=== PATIENT | female | born 1975 | race Caucasian/White ===

== ENCOUNTER 2022-10-22 08:21 | Outpatient (CLI) | payer OTHER, SELFPAY ==
[2022-10-22 13:25] LABS: Basophils Absolute Auto 0.1 K/mm3 (0.0-0.1); Basophils Percent Auto 0.9 % (0.2-1.2); Eosinophils Absolute Auto 0.2 K/mm3 (0-0.3); Eosinophils Percent Auto 3.3 % (0-4.4); Hematocrit 41.2 % (37.0-47.0); Hemoglobin 12.9 g/dL (12.0-15.0); Immature Granulocyte Absolute 0.02 K/mm3 (0.00-0.031); Immature Granulocyte Percent A 0.3 % (0-0.5); Lymphocytes Absolute Auto 1.27 K/mm3 (0.9-3.2); Mean Corpuscular HGB Conc 31.3 g/dl (32-36); Mean Corpuscular Hemoglobin 28.4 pg (26-34); Mean Corpuscular Volume 90.7 fl (80-100); Monocytes Absolute Auto 0.6 K/mm3 (0.1-0.6); Monocytes Percent Auto 10.9 % (2.6-8.5); Neutrophils Absolute Auto 3.6 K/mm3 (1.3-6.7); Neutrophils Percent Auto 62.6 % (45.5-73.1); Platelet Count Result 144 k/mm3 (150-375); Red Blood Count 4.54 M/mm3 (4.2-5.4); Red Cell Distribution Width 12.8 % (11.5-14.5); White Blood Count 5.8 K/mm3 (4.5-10.0)
[2022-10-22 14:02] LABS: Erythrocyte Sedimentation Rate 7 mm/hr (0-20)
[2022-10-22 14:04] LABS: Alanine Aminotransferase 47 U/L (6-35); Alkaline Phosphatase 49 U/L (38-126); Anion Gap 6 mmol/L (8-16); Aspartate Amino Transferase 49 U/L (14-36); Bilirubin,Total 0.8 mg/dL (0.2-1.3); Blood Urea Nitrogen 15 mg/dL (7-17); Calcium 8.5 mg/dL (8.4-10.2); Carbon Dioxide 28 mmol/L (22-30); Chloride 104 mmol/L (98-107); Cholesterol 174 mg/dL (0-200); Estimated Glomerular Filt Rate > 60; Glucose 88 mg/dL (65-110); HDL Direct 42 mg/dL; Potassium 4.4 mmol/L (3.4-5.0); Sodium 138 mmol/L (137-145); Triglycerides 109 mg/dL (<150)
[2022-10-22 14:15] LABS: LDL Cholesterol Direct 97 mg/dL
[2022-10-22 14:36] LABS: Free T4 Free Thyroxine 1.25 ng/mL (0.78-2.19)
[2022-10-22 14:39] LABS: Rheumatoid Factor < 12.0 IU/ML (<12)
[2022-10-26 13:01] LABS: ANA Cascade Screen Positive (Negative)
[2022-10-27 12:19] LABS: Chromatin (Nucleosomal) Ab <1.0; Chromatin Antibody Charge YES; DNA (ds) Antibody Charge YES; RNP Antibody 2.6; RNP Antibody Charge YES; Sm Antibody <1.0; Sm Antibody Charge YES; Sm/RNP Antibody <1.0; Sm/RNP Antibody Charge YES
[2022-10-30 19:20] LABS: Immunoglobulin A <5 mg/dL (47-310); TTG IGA AB <1.0 U/mL (<15.0); Tissue Transglutaminase IgG Ab 90.2 U/mL (<15.0)
== END 2022-10-22 08:22 | disposition home or self-care (01) ==
LOC: ANHGOSHLAB 08:24
PROVIDERS: PCP Internal Medicine; Visit Provider Nurse Practitioner
DX: R53.83 Other fatigue (principal); K90.0 Celiac disease; E03.9 Hypothyroidism, unspecified; Z13.220 Encounter for screening for lipoid disorders
CPT/HCPCS: 36415; 80053; 80061; 82784; 84439; 84443; 85025; 85652; 86038; 86364; 86430

== ENCOUNTER 2022-11-03 11:54 | Outpatient (CLI) | payer OTHER, SELFPAY ==
[2022-11-03 12:36] LABS: Basophils Percent Auto 0.4 % (0.2-1.2); Eosinophils Absolute Auto 0.2 K/mm3 (0-0.3); Eosinophils Percent Auto 2.7 % (0-4.4); Hematocrit 38.3 % (37.0-47.0); Hematocrit 38.5 % (37.0-47.0); Hemoglobin 12.7 g/dL (12.0-15.0); Immature Granulocyte Absolute 0.03 K/mm3 (0.00-0.031); Immature Granulocyte Percent A 0.4 % (0-0.5); Lymphocytes Absolute Auto 1.82 K/mm3 (0.9-3.2); Lymphocytes Percent Auto 21.6 % (18.3-44.2); Mean Corpuscular HGB Conc 33.2 g/dl (32-36); Mean Corpuscular Hemoglobin 29.2 pg (26-34); Mean Corpuscular Volume 87.4 fl (80-100); Mean Corpuscular Volume 88.5 fl (80-100); Mean Platelet Volume 11.8 fl (7.4-10.4); Monocytes Absolute Auto 0.9 K/mm3 (0.1-0.6); Monocytes Percent Auto 10.1 % (2.6-8.5); Neutrophils Absolute Auto 5.5 K/mm3 (1.3-6.7); Neutrophils Percent Auto 64.8 % (45.5-73.1); Platelet Count Result 147 k/mm3 (150-375); Red Blood Count 4.35 M/mm3 (4.2-5.4); Red Blood Count 4.38 M/mm3 (4.2-5.4); Red Cell Distribution Width 12.8 % (11.5-14.5); White Blood Count 8.2 K/mm3 (4.5-10.0); White Blood Count 8.4 K/mm3 (4.5-10.0)
[2022-11-03 12:47] LABS: Iron 91 ug/dL (37-170)
[2022-11-03 12:49] LABS: Alanine Aminotransferase 38 U/L (6-35); Albumin Level 4.4 g/dL (3.5-5.1); Alkaline Phosphatase 59 U/L (38-126); Anion Gap 9 mmol/L (8-16); Aspartate Amino Transferase 30 U/L (14-36); Bilirubin,Total 0.6 mg/dL (0.2-1.3); Blood Urea Nitrogen 16 mg/dL (7-17); CRP 0.7 mg/dL (<1.0); Calcium 8.5 mg/dL (8.4-10.2); Carbon Dioxide 23 mmol/L (22-30); Chloride 104 mmol/L (98-107); Estimated Glomerular Filt Rate > 60; Glucose 91 mg/dL (65-110); Potassium 3.7 mmol/L (3.4-5.0); Sodium 136 mmol/L (137-145)
[2022-11-03 12:49] LABS: INR 0.9; Prothrombin Time 12.3 Seconds (11.1-14.7)
[2022-11-03 12:56] LABS: Percent Iron Saturation 22 % (20-50)
[2022-11-03 13:19] LABS: Hepatitis B Surface Antigen Negative (Negative)
[2022-11-03 13:26] LABS: HAV RESULT Negative (Negative); Hepatitis B Core IgM Result Negative (Negative)
[2022-11-03 13:37] LABS: Hepatitis C Virus Antibody Negative (Negative)
[2022-11-03 21:15] LABS: Folic Acid > 20.0 ng/mL (2.76->20)
[2022-11-05 21:49] LABS: Mitochondrial (M2) Ab (IgG) <=20.0 U (<=20.0)
[2022-11-06 11:35] LABS: Vitamin D 1,25 (OH)2 Total 74 pg/mL (18-72); Vitamin D2 1,25 (OH)2 <8 pg/mL; Vitamin D3 1,25 (OH)2 74 pg/mL
[2022-11-06 12:34] LABS: Actin Antibody (IgG) <20 U (<20)
[2022-11-07 08:53] LABS: Ceruloplasmin 35 mg/dL (18-53)
[2022-11-07 16:12] LABS: Alpha Fetoprotein Tumor Marker 2.9 ng/mL (<6.1)
[2022-11-07 19:14] LABS: GGT 18 U/L (3-55)
[2022-11-09 18:14] LABS: LKM 1 Antibody <=20.0 U (<=20.0)
[2022-11-09 22:49] LABS: ALT 29 U/L (6-29); Alpha-2-Macroglobulin 161 mg/dL (106-279); Apolipoprotein A1 160 mg/dL (101-198); Fibrosis Score 0.07; Fibrosis Stage F0; GGT 18 U/L (3-55); Haptoglobin 120 mg/dL (43-212); Necroinflammat Act Grade A0; Total Bilirubin 0.4 mg/dL (0.2-1.2)
== END 2022-11-03 11:55 | disposition home or self-care (01) ==
PROVIDERS: Nurse Practitioner; PCP Internal Medicine; Visit Provider Nurse Practitioner
DX: D69.6 Thrombocytopenia, unspecified (principal); K90.0 Celiac disease; R74.8 Abnormal levels of other serum enzymes; K74.60 Unspecified cirrhosis of liver; R74.01 Elevation of levels of liver transaminase levels
CPT/HCPCS: 36415; 80053; 80074; 81596; 82104; 82105; 82390; 82607; 82652; 82728; 82746; 82977; 83520; 83540; 83550; 85025; 85027; 85610; 86140; 86364; 86376

== ENCOUNTER 2022-11-20 00:40 | Day surgery (SDC) | payer OTHER, SELFPAY ==
[2022-11-11 13:27] VITALS: BMI 25.3
[2022-11-20 11:47] VITALS: BP 116/74; PULSE 74; RESP 18; TEMP 36.6; O2SAT 100
--- NOTE | 2022-11-20 11:50 | WPDHPUPDATE1 ---
History and Physical Update Update Date/Time: 11/20/22 11:50 History and Physical has been reviewed, including an updated exam of the patient. There are NO changes in the patient's condition. Risks, benefits, and alternatives have been discussed and questions answered. Patient agrees to proceed with procedure.
[2022-11-20] MEDS: LACTATED RINGERS 1,000 ML 150 ML IV CONT (11:56)
--- NOTE | 2022-11-20 12:03 | WPDANESEPPF ---
Anes - Initial Pre Proc Eval Procedure: Operation Date: 11/20/22 13:00 Proposed Procedures p Esophagogastroduodenoscopy & Colonoscopy - Antonio Spears MD Date/Time: 11/20/22 12:03 Surgeon: Antonio Spears MD Pre Op Diagnosis: change in bowel habits,constipation,celiac Patient Data Age: 47 Gender: F Height: 1.63 m Weight: 65.9 kg Last Vital Signs Temp 97.8 F 11/20/22 11:47 Pulse 74 11/20/22 11:47 Resp 18 11/20/22 11:47 BP 116/74 11/20/22 11:47 Pulse Ox 100 11/20/22 11:47 O2 Del Method Room Air 11/20/22 11:47 Allergies Allergy/AdvReac Type Severity Reaction Status Date / Time No Known Allergies Allergy Verified 11/20/22 11:46 Home Medications Medication Instructions Recorded Confirmed Type ascorbate calcium (vitamin C) 500 500 mg PO DAILY 10/21/22 11/11/22 History mg tablet multivitamin (Multiple Vitamins 1 tablet PO DAILY 10/21/22 11/11/22 History tablet) levothyroxine 50 mcg tablet 50 mcg PO DAILY #90 tabs 10/29/22 11/11/22 Rx Patient hx anesthesia problems: none Family hx anesthesia problems: none Results Review: All pre-operative results and documents have been reviewed as part of the pre-operative evaluation. [facility] Past Medical History Medical History (Updated 11/03/22 @ 13:06 by Arline Xiong APRN) Abdominal bruit Anemia Asthma Celiac disease Change in bowel habits Constipation Elevated liver enzymes Family history of Crohn's disease Hypothyroid IgA deficiency Lower abdominal pain Lymphocytic gastritis Migraines Postprandial abdominal pain in right upper quadrant Surgical History Surgical History H/O ovarian cystectomy H/O release of tendon H/O: hysterectomy History of appendectomy History of herniorrhaphy History of mastectomy Family History Family History Father Hypertension Grandparent Breast cancer Lung cancer Social History Social History Smoking status: Never smoker Second hand tobacco smoke exposure: No Alcohol intake: current Alcohol use details: social Substance use type: does not use Lack of Transportation: No Lack of Food: Never True Current Housing: I Have Housing Concerned About Future Housing: No Difficulty Paying Gas/Electric Bills: No Difficulty Paying for Meds: No Currently Unemployed: No Education: Bachelor's Degree Difficulty w/ Childcare or Family Care: No Living arrangements: with family Gender identity (if verbalized by the patient): Female Spiritual care concerns: No Anes - Eval Final PreProcedure Day of Procedure 11/20/22 12:03 Patient weight: normal Heart: regular rate and rhythm Lungs: clear to auscultation Airway: Mallampati scale class II Neurological: alert and oriented Last oral intake: >/= 8 hours ASA classification: II Emergent: no Anesthetic plan: proceed Anesthesia type and monitoring: general GIVS and standard monitoring Results Review: All pre-operative results and documents have been reviewed as part of the pre-operative evaluation. Informed Consent: The patient's anesthetic plan and its attendant risks and benefits were discussed with the patient/family/POA. Questions were solicited and answers provided to the satisfaction of the patient/family/POA.
--- NOTE | 2022-11-20 12:39 | SUR.OPER ---
EGD START 1215, END 1220 COLONOSCOPY START 1224, END 1238
[2022-11-20 12:41] VITALS: BP 95/62; PULSE 87; RESP 18; O2SAT 100
[2022-11-20 12:51] VITALS: BP 94/64; PULSE 71; RESP 15; O2SAT 100
[2022-11-20 13:01] VITALS: BP 108/66; PULSE 70; RESP 16; O2SAT 100
== END 2022-11-20 13:14 | disposition home or self-care (01) ==
PROVIDERS: PCP Internal Medicine; Visit Provider Internal Medicine Gastroenterology
PROC: 0DJ08ZZ Inspection of Upper Intestinal Tract, Via Natural or Artificial Opening Endoscopic (ICD-10-PCS; CPT 43235; principal; 2022-11-20 13:00)
DX: K90.0 Celiac disease (principal); D12.4 Benign neoplasm of descending colon; K44.9 Diaphragmatic hernia without obstruction or gangrene; K31.9 Disease of stomach and duodenum, unspecified; E03.9 Hypothyroidism, unspecified
CPT/HCPCS: 45380; 45385; 43239; 88305; J2704; J7120

== ENCOUNTER 2022-11-23 16:06 | Outpatient (CLI) | payer OTHER, SELFPAY ==
--- NOTE | ~2022-11-23 | CT_ITS ---
EXAMINATION: CT abdomen pelvis w con DATE: 11/23/2022 16:46 INDICATION: Lower abdominal pain, bloating and abdominal bruit TECHNIQUE: Computed tomography (CT) of the abdomen and pelvis was performed with 100 mL Omnipaque-350 intravenous contrast. Automated exposure control and iterative reconstruction technique were employe d. The dose-length product was 382.18 mGy-cm. COMPARISON: None FINDINGS: Mild dependent atelectasis in bilateral lower lobes. Heart size is normal. No pericardial or pleural effusion. Bilateral breast implants. There are few subcentimeter low-attenuation hepatic cysts. Gallb ladder, spleen, pancreas, bilateral adrenal glands and left kidney are normal. 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 Appendix is not visualized and there are s urgical clips about the cecum likely related to prior cholecystectomy. No dilated bowel to suggest ob struction. And bladder is normal. The uterus is not identified and has likely been surgically resecte d. Left adnexa is unremarkable. At the right ovary appears both a fluid attenuation simple appearing 2.9 cm cyst and a 1.7 cm peripherally enhancing likely corpus luteum cyst. No free intraperitoneal ga s or fluid. No pathologically enlarged abdominal or pelvic lymphadenopathy. Thoracic aorta is normal in caliber with no evident atherosclerotic plaque or dissection. Mild thoracolumbar dextrocurvature. IMPRESSION: 1. No acute intra-abdominal/pelvic process. Reviewed, dictated and finalized at location A.
== END 2022-11-23 16:07 | disposition home or self-care (01) ==
LOC: ANHIMG 16:20
PROVIDERS: PCP Internal Medicine; Visit Provider Nurse Practitioner
DX: K59.00 Constipation, unspecified (principal); R09.89 Other specified symptoms and signs involving the circulatory and respiratory systems; R10.11 Right upper quadrant pain; R10.30 Lower abdominal pain, unspecified; R74.8 Abnormal levels of other serum enzymes
CPT/HCPCS: 74177; Q9967

== ENCOUNTER 2022-12-02 09:36 | Outpatient (CLI) | payer OTHER, SELFPAY ==
[2022-12-02 20:08] LABS: Thyroid Stimulating Hormone 0.536 uIU/mL (0.465-4.680)
[2022-12-06 06:22] LABS: FSH 4.8 mIU/mL (***)
[2022-12-10 22:06] LABS: Estradiol, Ultrasensitive 161 pg/mL
== END 2022-12-02 09:37 | disposition home or self-care (01) ==
LOC: ANHGOSHLAB 09:37
PROVIDERS: PCP Internal Medicine; Visit Provider Student in an Organized Health Care Education/Training Program
DX: N95.1 Menopausal and female climacteric states (principal)
CPT/HCPCS: 36415; 82670; 83001; 84443

== ENCOUNTER 2023-04-28 13:13 | Outpatient (CLI) | payer OTHER, SELFPAY ==
[2023-04-28 14:13] LABS: Basophils Absolute Auto 0.1 K/mm3 (0.0-0.1); Eosinophils Absolute Auto 0.4 K/mm3 (0-0.3); Eosinophils Percent Auto 5.5 % (0-4.4); Hematocrit 41.9 % (37.0-47.0); Hemoglobin 13.6 g/dL (12.0-15.0); Immature Granulocyte Absolute 0.03 K/mm3 (0.00-0.031); Immature Granulocyte Percent A 0.4 % (0-0.5); Lymphocytes Percent Auto 26.1 % (18.3-44.2); Mean Corpuscular HGB Conc 32.5 g/dl (32-36); Mean Corpuscular Hemoglobin 28.9 pg (26-34); Mean Platelet Volume 10.9 fl (7.4-10.4); Monocytes Absolute Auto 0.8 K/mm3 (0.1-0.6); Monocytes Percent Auto 10.1 % (2.6-8.5); Neutrophils Absolute Auto 4.6 K/mm3 (1.3-6.7); Neutrophils Percent Auto 56.9 % (45.5-73.1); Platelet Count Result 251 k/mm3 (150-375); Red Blood Count 4.71 M/mm3 (4.2-5.4); Red Cell Distribution Width 12.9 % (11.5-14.5)
[2023-04-28 15:36] LABS: Alanine Aminotransferase 29 U/L (6-35); Alkaline Phosphatase 55 U/L (38-126); Anion Gap 4 mmol/L (8-16); Aspartate Amino Transferase 77 U/L (14-36); Bilirubin,Total 0.5 mg/dL (0.2-1.3); Blood Urea Nitrogen 19 mg/dL (7-17); Calcium 8.4 mg/dL (8.4-10.2); Carbon Dioxide 29 mmol/L (22-30); Chloride 103 mmol/L (98-107); Estimated Glomerular Filt Rate > 60; Glucose 97 mg/dL (65-110); Potassium 4.1 mmol/L (3.4-5.0); Sodium 136 mmol/L (137-145)
== END 2023-04-28 13:14 | disposition home or self-care (01) ==
LOC: ANHGOSHLAB 13:14
PROVIDERS: PCP Internal Medicine; Visit Provider Nurse Practitioner
DX: D69.6 Thrombocytopenia, unspecified (principal); R74.01 Elevation of levels of liver transaminase levels
CPT/HCPCS: 36415; 80053; 85025

== ENCOUNTER 2023-09-13 07:18 | Outpatient (CLI) | payer OTHER, SELFPAY ==
--- NOTE | ~2023-09-13 | MM_ITS ---
EXAMINATION: MM scrn ramon implant BI w selene HISTORY: Screening mammogram TECHNIQUE: Craniocaudal and mediolateral oblique 3-D tomosynthesis images with implant displacement a nd synthetic 2-D images were generated. Craniocaudal and mediolateral oblique views of the breasts wi thout implant displacement were obtained using full field digital mammography. CAD analysis was submi tted and interpreted. COMPARISON: No prior mammogram is available for comparison at this institution. BREAST PARENCHYMAL COMPOSITION: There are scattered areas of fibroglandular density. FINDINGS: There is no evidence of suspicious mass, calcification, or architectural distortion to sugg est malignancy in either breast. There has been no suspicious interval change. IMPRESSION: 1. No mammographic evidence of malignancy. 2. Recommend routine screening mammography in one year. BI-RADS Category 1: Negative Reviewed, dictated and finalized at location B.
== END 2023-09-13 07:19 | disposition home or self-care (01) ==
LOC: CHSIMG 07:19
PROVIDERS: PCP Nurse Practitioner; Visit Provider Nurse Practitioner
DX: Z12.31 Encounter for screening mammogram for malignant neoplasm of breast (principal)
CPT/HCPCS: 77063; 77067

== ENCOUNTER 2023-12-03 08:54 | Outpatient (CLI) | payer OTHER, SELFPAY ==
[2023-12-03 15:23] LABS: Cholesterol 158 mg/dL (0-200); HDL Direct 44 mg/dL; Triglycerides 220 mg/dL (<150)
[2023-12-03 15:34] LABS: LDL Cholesterol Direct 81 mg/dL
[2023-12-08 02:18] LABS: FSH 7.8 mIU/mL
[2023-12-11 20:13] LABS: Estradiol, Ultrasensitive 77 pg/mL
== END 2023-12-03 08:55 | disposition home or self-care (01) ==
LOC: ANHGOSHLAB 08:57
PROVIDERS: PCP Nurse Practitioner; Visit Provider Nurse Practitioner Obstetrics & Gynecology
DX: E55.9 Vitamin D deficiency, unspecified (principal); Z13.220 Encounter for screening for lipoid disorders; N95.1 Menopausal and female climacteric states
CPT/HCPCS: 36415; 80061; 82670; 83001

== ENCOUNTER 2023-12-30 10:41 | Outpatient (CLI) | payer OTHER, SELFPAY ==
[2023-12-30 11:17] LABS: Hematocrit 41.8 % (37.0-47.0); Hemoglobin 13.5 g/dL (12.0-15.0); Mean Corpuscular HGB Conc 32.3 g/dl (32-36); Mean Corpuscular Volume 89.7 fl (80-100); Mean Platelet Volume 10.6 fl (7.4-10.4); Platelet Count Result 239 k/mm3 (150-375); Red Blood Count 4.66 M/mm3 (4.2-5.4); Red Cell Distribution Width 12.8 % (11.5-14.5); White Blood Count 6.5 K/mm3 (4.5-10.0)
[2023-12-30 11:30] LABS: Alanine Aminotransferase 28 U/L (6-35); Albumin Level 4.5 g/dL (3.5-5.1); Alkaline Phosphatase 62 U/L (38-126); Anion Gap 9 mmol/L (4-12); Aspartate Amino Transferase 28 U/L (14-36); Bilirubin,Total 0.6 mg/dL (0.2-1.3); Blood Urea Nitrogen 19 mg/dL (7-17); Carbon Dioxide 25 mmol/L (22-30); Chloride 102 mmol/L (98-107); Estimated Glomerular Filt Rate > 60; Glucose 95 mg/dL (65-110); Potassium 4.1 mmol/L (3.4-5.0); Sodium 136 mmol/L (137-145)
[2023-12-30 11:47] LABS: Iron 66 ug/dL (37-170)
[2023-12-30 11:58] LABS: Percent Iron Saturation 19 % (20-50)
[2023-12-30 12:36] LABS: Folic Acid 16.8 ng/mL (2.76->20); Vitamin B12 > 1000.0 pg/mL (239-931)
[2024-01-03 18:09] LABS: Alpha-Tocopherol 17.9 mg/L (5.7-19.9); Beta-Gamma Tocopherol 1.6 mg/L (<4.4); Vitamin A 66 mcg/dL (38-98)
[2024-01-05 10:14] LABS: Vitamin D 1,25 (OH)2 Total 24 pg/mL (18-72); Vitamin D2 1,25 (OH)2 <8 pg/mL; Vitamin D3 1,25 (OH)2 24 pg/mL
[2024-01-07 03:43] LABS: Immunoglobulin A <5 mg/dL (47-310); TTG IGA AB <1.0 U/mL; Tissue Transglutaminase IgG Ab 65.1 U/mL
== END 2023-12-30 10:42 | disposition home or self-care (01) ==
LOC: ANHLAB 10:44
PROVIDERS: PCP Nurse Practitioner; Visit Provider Nurse Practitioner
DX: K90.0 Celiac disease (principal); K58.0 Irritable bowel syndrome with diarrhea
CPT/HCPCS: 36415; 80053; 82607; 82652; 82728; 82746; 82784; 83540; 83550; 84446; 84590; 85027; 86364

== ENCOUNTER 2024-01-18 10:51 | Outpatient (CLI) | payer OTHER, SELFPAY ==
[2024-01-18 19:44] LABS: Free T4 Free Thyroxine 1.09 ng/mL (0.78-2.19)
== END 2024-01-18 10:52 | disposition home or self-care (01) ==
LOC: ANHGOSHLAB 10:53
PROVIDERS: PCP Nurse Practitioner; Visit Provider Nurse Practitioner
DX: E03.9 Hypothyroidism, unspecified (principal)
CPT/HCPCS: 36415; 84439; 84443; 84481

== ENCOUNTER 2024-02-14 06:32 | Outpatient (CLI) | payer OTHER, SELFPAY ==
[2024-02-08 13:41] VITALS: BMI 26.1
--- NOTE | 2024-02-14 06:57 | SUR.OPER ---
Patient brought to GI Lab. Instructions for patient undergoing Capsule Endoscopy reviewed with patient. Consent form signed. Sensor array applied to patient's abdomen and connected to recorded. Patient swallowed capsule with 2 cups of water infused with Simethicone. Patient instructed they may have clear liquids at 0840 this AM and eat or drink at 1040 this AM. Patient instructed to return to GI Lab at 1500 this afternoon for removal of recording device and to call [phone] or to return to the hospital if any nausea and vomiting or abdominal pain is experienced.
--- NOTE | 2024-02-14 15:22 | SUR.PHASEII ---
Patient returned to the GI Lab at 1520 for recorder box removal. Patient voiced no complaints. States they have understanding of instructions. Patient left ambulatory.
== END 2024-02-14 06:33 | disposition home or self-care (01) ==
LOC: ANHENDO 06:33
PROVIDERS: PCP Nurse Practitioner; Referring Provider Nurse Practitioner; Visit Provider Internal Medicine Gastroenterology
PROC: 0DJ07ZZ Inspection of Upper Intestinal Tract, Via Natural or Artificial Opening (ICD-10-PCS; CPT 91110; principal; 2024-02-14 07:00)
DX: K90.0 Celiac disease (principal); Z01.818 Encounter for other preprocedural examination
CPT/HCPCS: 91110

== ENCOUNTER 2024-02-24 09:32 | Outpatient (CLI) | payer OTHER, SELFPAY ==
[2024-02-24 10:02] LABS: Alanine Aminotransferase 28 U/L (6-35); Albumin Level 4.2 g/dL (3.5-5.1); Alkaline Phosphatase 49 U/L (38-126); Anion Gap 5 mmol/L (4-12); Aspartate Amino Transferase 31 U/L (14-36); Bilirubin,Total 0.7 mg/dL (0.2-1.3); Blood Urea Nitrogen 20 mg/dL (7-17); Calcium 9.3 mg/dL (8.4-10.2); Carbon Dioxide 28 mmol/L (22-30); Chloride 104 mmol/L (98-107); Estimated Glomerular Filt Rate > 60; Glucose 91 mg/dL (65-110); Potassium 4.1 mmol/L (3.4-5.0); Sodium 137 mmol/L (137-145)
== END 2024-02-24 09:33 | disposition home or self-care (01) ==
LOC: ANHLAB 09:33
PROVIDERS: PCP Nurse Practitioner; Visit Provider Nurse Practitioner Obstetrics & Gynecology
DX: Z51.81 Encounter for therapeutic drug level monitoring (principal); Z79.899 Other long term (current) drug therapy
CPT/HCPCS: 36415; 80053

== ENCOUNTER 2024-03-13 15:03 | Emergency (ER) | payer OTHER, SELFPAY ==
[2024-03-13 15:31] VITALS: BP 122/83; PULSE 71; RESP 14; TEMP 36.4; O2SAT 100
--- NOTE | 2024-03-13 15:56 | ED.EAR ---
HPI - Ear Problem General Chief complaint: Ear Stated complaint: Ear Pain Time Seen by Provider: 03/13/24 15:40 Source: patient Mode of arrival: ambulatory Limitations: no limitations History of Present Illness HPI Narrative: William is a 48-year-old female patient presenting to the clinic today with complaints of right ear pain times 1 day. She reports this morning she woke up with right ear pain. Has had URI symptoms for the past 1-2 weeks and that has improved but woke up this morning with the ear pain. Denies any fever or chills. Related Data Home Medications Medication Instructions Recorded Confirmed ascorbate calcium (vitamin C) 500 500 mg PO DAILY 10/21/22 03/13/24 mg tablet multivitamin (Multiple Vitamins 1 tablet PO DAILY 10/21/22 03/13/24 tablet) hydroxychloroquine 200 mg tablet 200 mg PO DAILY 08/24/23 03/13/24 Allergies Allergy/AdvReac Type Severity Reaction Status Date / Time No Known Allergies Allergy Verified 03/13/24 15:40 Review of Systems Review of Systems: Pertinent positives per HPI. Patient denies any fever, chills, rash, headache, visual changes, dizziness, cough, runny nose, sore throat, shortness of breath, chest pain, palpitations, nausea, vomiting, diarrhea, constipation, abdominal pain, or any urinary issues. [facility] Past Medical History Medical History Abdominal bruit Adenomatous colon polyp Anemia Asthma Celiac disease Change in bowel habits Connective tissue disorder Constipation Elevated liver enzymes Family history of Crohn's disease Hypothyroid IgA deficiency Lower abdominal pain Lymphocytic gastritis Migraines Postprandial abdominal pain in right upper quadrant Surgical History Surgical History H/O breast augmentation H/O colonoscopy H/O ovarian cystectomy H/O release of tendon H/O: hysterectomy History of appendectomy History of endometrial ablation History of herniorrhaphy Family History Family History Father Hypertension Grandparent Breast cancer Lung cancer Hypertension Heart disease Diabetes mellitus Social History Social History Smoking status: Never smoker Second hand tobacco smoke exposure: No Lack of Transportation: No Lack of Food: Never True Current Housing: I Have Housing Concerned About Future Housing: No Difficulty Paying Gas/Electric Bills: No Difficulty Paying for Meds: No Currently Unemployed: No Education: Bachelor's Degree Difficulty w/ Childcare or Family Care: No Living arrangements: with family Gender identity (if verbalized by the patient): Female Comments At the time of my signature, I reviewed and agree with the nursing past medical, surgical, social, and family history. There is no relevant family history pertinent to the patient complaint. Exam Narrative: General: Well-developed, well nourished, in no apparent distress Head: Normocephalic, atraumatic Eyes: Pupils equally round and reactive to light bilaterally, EOM intact, sclera and conjunctive clear, no discharge, lids normal Ears: Left TMs intact and congested, right TM intact, bulging, red ear canals clear, no drainage, grossly hearing normal. Nose: Nares patent, clear nasal discharge, no inflammation, no sinus tenderness. Mouth: Oropharynx without lesions or masses, good dentition, MMM. Neck: Supple, trachea midline, no enlargement of anterior or posterior cervical nodes, no thyroid masses or goiter palpable. Cardio: Regular rate and rhythm, s1 and s2 normal, no murmur appreciated. Resp: Clear to auscultation bilaterally anteriorly and posteriorly, no rhonchi, rales, wheezing or rubs Course Course Emergency Course: Portions of this record may have been created with voice recognition software. Level of Care: Express Care Visit Vital Signs Vital signs: Vital Signs Temperature 36.4 C 03/13/24 15:31 Pulse Rate 71 03/13/24 15:31 Respiratory Rate 14 03/13/24 15:31 Blood Pressure 122/83 03/13/24 15:31 Pulse Oximetry 100 03/13/24 15:31 Oxygen Delivery Room Air 03/13/24 15:31 Temperature 36.4 C 03/13/24 15:31 Pulse Rate 71 03/13/24 15:31 Respiratory Rate 14 03/13/24 15:31 Blood Pressure 122/83 03/13/24 15:31 Pulse Oximetry 100 03/13/24 15:31 Oxygen Delivery Room Air 03/13/24 15:31 Vital signs reviewed Medical Decision Making MDM Narrative Medical decision making narrative: At the time of visit patient is resting comfortably on the exam table. Patient appears to be nontoxic. Plan: I suspect patient has right otitis media. Prescription for prednisone and amoxicillin was sent to the pharmacy. Supportive measures were discussed with the patient and they voiced understanding discharge instructions and agrees to treatment plan. Return precautions reviewed Differential Diagnosis Differential Diagnosis: Otitis media, otitis externa, eustachian tube dysfunction, cerumen impaction, upper respiratory infection, serous otitis Vital Signs Vital Signs: Vital Signs Temperature 36.4 C 03/13/24 15:31 Pulse Rate 71 03/13/24 15:31 Respiratory Rate 14 03/13/24 15:31 Blood Pressure 122/83 03/13/24 15:31 Pulse Oximetry 100 03/13/24 15:31 Oxygen Delivery Room Air 03/13/24 15:31 Temperature 36.4 C 03/13/24 15:31 Pulse Rate 71 03/13/24 15:31 Respiratory Rate 14 03/13/24 15:31 Blood Pressure 122/83 03/13/24 15:31 Pulse Oximetry 100 03/13/24 15:31 Oxygen Delivery Room Air 03/13/24 15:31 Discharge Plan Discharge Clinical Impression: Acute right otitis media Patient Disposition: Home, Self-Care Condition: Stable Instructions: Antibiotic Form, Ear Infection (ED) Additional Instructions: Take any prescribed medications only as directed-prednisone and amoxicillin Tylenol/motrin as needed for pain May use heating pad to alleviate pain If you get recurrent ear infections it may be warranted to follow up with ENT. Follow up with your PCP in 3-5 days if symptoms persist. Prescriptions: New amoxicillin 875 mg tablet 875 mg PO Q12H 10 Days Qty: 20 0RF prednisone 20 mg tablet 40 mg PO DAILY 5 Days Qty: 10 0RF No Action multivitamin [Multiple Vitamins] Tablet 1 tablet PO DAILY ascorbate calcium (vitamin C) 500 mg tablet 500 mg PO DAILY hydroxychloroquine 200 mg tablet 200 mg PO DAILY Rx Instructions: PRESCRIBED BY PORTIA sertraline 50 mg tablet 50 mg PO DAILY Qty: 90 3RF estradiol 0.5 mg tablet 1.5 mg PO DAILY Qty: 180 0RF omeprazole 20 mg capsule,delayed release(DR/EC) 20 mg PO DAILY Qty: 30 1RF levothyroxine 50 mcg tablet 50 mcg PO DAILY Qty: 90 3RF Follow-up/Referrals: Marva Guerra, CIGARETTE MAKING MACHINE OPERATOR [Primary Care Provider] - Time of Disposition: 15:51 Quality NIHSS Nursing Documentation ED NIHSS nursing documentation: reviewed/agree
== END 2024-03-13 15:54 | disposition home or self-care (01) ==
PROVIDERS: Emergency Provider Nurse Practitioner Family; PCP Nurse Practitioner
DX: H66.91 Otitis media, unspecified, right ear (principal); J45.909 Unspecified asthma, uncomplicated; K90.0 Celiac disease; E03.9 Hypothyroidism, unspecified; D80.2 Selective deficiency of immunoglobulin A [IgA]
CPT/HCPCS: 96372; 99203; G0463; J1885

== ENCOUNTER 2024-03-13 17:19 | Emergency (ER) | payer OTHER, SELFPAY ==
--- NOTE | 2024-03-13 17:22 | ED.EAR ---
HPI - Ear Problem General Chief complaint: Ear Stated complaint: Ear Pain Time Seen by Provider: 03/13/24 17:30 Source: patient Mode of arrival: ambulatory Limitations: no limitations History of Present Illness HPI Narrative: William is a 48-year-old female patient returning to the [facility] for increased ear pain and bleeding nail coming from her ear. She was discharged with right otitis media and after leaving she developed a sharp pain in the right ear and noticed blood coming from the ear. Related Data Home Medications Medication Instructions Recorded Confirmed ascorbate calcium (vitamin C) 500 500 mg PO DAILY 10/21/22 03/13/24 mg tablet multivitamin (Multiple Vitamins 1 tablet PO DAILY 10/21/22 03/13/24 tablet) hydroxychloroquine 200 mg tablet 200 mg PO DAILY 08/24/23 03/13/24 Allergies Allergy/AdvReac Type Severity Reaction Status Date / Time No Known Allergies Allergy Verified 03/13/24 15:40 Review of Systems Review of Systems: Pertinent positives per HPI. Patient denies any fever, chills, rash, headache, visual changes, dizziness, cough, runny nose, sore throat, shortness of breath, chest pain, palpitations, nausea, vomiting, diarrhea, constipation, abdominal pain, or any urinary issues. [facility] Past Medical History Medical History Abdominal bruit Adenomatous colon polyp Anemia Asthma Celiac disease Change in bowel habits Connective tissue disorder Constipation Elevated liver enzymes Family history of Crohn's disease Hypothyroid IgA deficiency Lower abdominal pain Lymphocytic gastritis Migraines Postprandial abdominal pain in right upper quadrant Surgical History Surgical History H/O breast augmentation H/O colonoscopy H/O ovarian cystectomy H/O release of tendon H/O: hysterectomy History of appendectomy History of endometrial ablation History of herniorrhaphy Family History Family History Father Hypertension Grandparent Breast cancer Lung cancer Hypertension Heart disease Diabetes mellitus Social History Social History Smoking status: Never smoker Second hand tobacco smoke exposure: No Lack of Transportation: No Lack of Food: Never True Current Housing: I Have Housing Concerned About Future Housing: No Difficulty Paying Gas/Electric Bills: No Difficulty Paying for Meds: No Currently Unemployed: No Education: Bachelor's Degree Difficulty w/ Childcare or Family Care: No Living arrangements: with family Gender identity (if verbalized by the patient): Female Comments At the time of my signature, I reviewed and agree with the nursing past medical, surgical, social, and family history. There is no relevant family history pertinent to the patient complaint. Exam Narrative: General: Well-developed, well nourished, in no apparent distress Head: Normocephalic, atraumatic Eyes: Pupils equally round and reactive to light bilaterally, EOM intact, sclera and conjunctive clear, no discharge, lids normal Ears: Left TMs intact and congested, right TM ruptured with blood noted behind the eardrum as well as in the ear canal, left ear canal clear, no drainage, grossly hearing normal. Nose: Nares patent, clear discharge, no inflammation, no sinus tenderness. Mouth: Oropharynx without lesions or masses, good dentition, MMM. Neck: Supple, trachea midline, no enlargement of anterior or posterior cervical nodes, no thyroid masses or goiter palpable. Cardio: Regular rate and rhythm, s1 and s2 normal, no murmur appreciated. Resp: Clear to auscultation bilaterally anteriorly and posteriorly, no rhonchi, rales, wheezing or rubs Course Course Emergency Course: Portions of this record may have been created with voice recognition software. Level of Care: Express Care Visit Vital Signs Vital signs: Vital signs reviewed Medical Decision Making MDM Narrative Medical decision making narrative: At the time of visit patient is resting comfortably on the exam table. Patient appears to be nontoxic. Medications: Toradol 60 mg IM given in the clinic today Plan: Patient has spontaneous rupture the right TM with blood noted behind the TM and into the ear canal. Prescription for ofloxacin and hydrocodone was sent to the pharmacy. Patient reporting pain 10/10 so Toradol 60 mg IM was given in the clinic today. Supportive measures were discussed with the patient and they voiced understanding discharge instructions and agrees to treatment plan. Return precautions reviewed Differential Diagnosis Differential Diagnosis: Otitis media, otitis externa, eustachian tube dysfunction, cerumen impaction, upper respiratory infection, ruptured ear drum, serous otitis Discharge Plan Discharge Clinical Impression: Acute suppurative otitis media with spontaneous rupture of ear drum Qualifiers: Laterality: right Recurrence: non-recurrent Qualified Code(s): H66.011 - Acute suppurative otitis media with spontaneous rupture of ear drum, right ear Patient Disposition: Home, Self-Care Condition: Stable Instructions: Antibiotic Form, Ruptured Eardrum (ED), Ear Infection (ED) Additional Instructions: Toradol 60 mg IM given in the clinic today for pain Take any prescribed medications only as directed-amoxicillin, hydrocodone for pain, and ofloxacin Tylenol/motrin as needed for pain Do not submerging head under water or put anything in your ear other than the prescribed ear drops May use heating pad to alleviate pain Avoid bottle propping if ear infection in . Follow-up with ears Nose and Throat- Dr. Banuelos-call his office tomorrow to schedule appointment Follow up with your PCP in 3-5 days if symptoms persist. Prescriptions: New hydrocodone-acetaminophen 5-325 mg tablet 1 tablet PO Q6H PRN (Reason: pain) 3 Days Qty: 12 0RF ofloxacin 0.3 % drops 5 drp otic (ear) BID 7 Days Qty: 5 0RF No Action amoxicillin 875 mg tablet 875 mg PO Q12H 10 Days Qty: 20 0RF prednisone 20 mg tablet 40 mg PO DAILY 5 Days Qty: 10 0RF multivitamin [Multiple Vitamins] Tablet 1 tablet PO DAILY ascorbate calcium (vitamin C) 500 mg tablet 500 mg PO DAILY hydroxychloroquine 200 mg tablet 200 mg PO DAILY Rx Instructions: PRESCRIBED BY RHEUM sertraline 50 mg tablet 50 mg PO DAILY Qty: 90 3RF estradiol 0.5 mg tablet 1.5 mg PO DAILY Qty: 180 0RF omeprazole 20 mg capsule,delayed release(DR/EC) 20 mg PO DAILY Qty: 30 1RF levothyroxine 50 mcg tablet 50 mcg PO DAILY Qty: 90 3RF Follow-up/Referrals: Ry Banuelos MD [Physician] - 1 Day (Right otitis media with spontaneous rupture of the right tympanic membrane) PHYSICIAN,CERTIFIED LACTATION EDUCATOR [Primary Care Provider] - Time of Disposition: 17:24 Quality NIHSS Nursing Documentation ED NIHSS nursing documentation: reviewed/agree
[2024-03-13] MEDS: KETOROLAC (*BKC) 60 MG/2 ML VIAL IM (17:25)
[2024-03-13 17:37] VITALS: BP 132/78; PULSE 70; RESP 18; TEMP 36.4; O2SAT 100
== END 2024-03-13 17:37 | disposition home or self-care (01) ==
PROVIDERS: Emergency Provider Nurse Practitioner Family
DX: H66.011 Acute suppurative otitis media with spontaneous rupture of ear drum, right ear (principal); J45.909 Unspecified asthma, uncomplicated; K90.0 Celiac disease; D80.2 Selective deficiency of immunoglobulin A [IgA]
CPT/HCPCS: 96372; 99203; G0463; J1885

== ENCOUNTER 2024-03-22 09:46 | Outpatient (CLI) | payer OTHER, SELFPAY ==
--- NOTE | ~2024-03-22 | CT_ITS ---
CT of the Abdomen and Pelvis: Indication: Abdominal pain Technique: 2.5 mm axial scans were obtained through the abdomen and pelvis following intravenous adm inistration of 100 cc of Omnipaque 350. Dose reduction technique was used on this scan by utilizing a utomated exposure control and iterative reconstruction technique. The dose-length product (DLP) was 3 46.94 mGy-cm. COMPARISON: 11/23/2022 Findings: Scans through the lung bases are unremarkable. The liver, spleen, pancreas, gallbladder, adrenals and kidneys are within normal limits. No evidence of aortic aneurysm. No lymphadenopathy. No bowel obstruction or bowel wall thickening. There is no evidence to suggest acute appendicitis. Images through the pelvis were performed. Urinary bladder unremarkable. No pelvic mass seen. No ascit es. Impression: No significant abnormalities seen. Reviewed, dictated and finalized at [facility]. S ACCOUNT LEADER Impression: No significant abnormalities seen.
== END 2024-03-22 09:47 | disposition home or self-care (01) ==
PROVIDERS: Visit Provider Nurse Practitioner
DX: R10.9 Unspecified abdominal pain (principal); R14.0 Abdominal distension (gaseous)
CPT/HCPCS: 74177; Q9967

== ENCOUNTER 2024-04-29 08:47 | Emergency (ER) | payer OTHER, SELFPAY ==
--- NOTE | 2024-04-29 08:58 | ED_ITS ---
HPI - Ear Problem General Chief complaint: Ear Stated complaint: EARACHE Time Seen by Provider: 04/29/24 08:58 Source: patient and RN notes reviewed Mode of arrival: ambulatory Limitations: no limitations History of Present Illness HPI Narrative: 48-year-old female presents with concern for right ear pain. Reports she was treated in the beginning of March for an ear infection with ear drum rupture. Reports she took all the medication she was prescribed. She reports she started having pain again in the right ear. She denies drainage from the ear. She denies fever. She has an appointment in ENT on . Complaint: ear pain Related Data Home Medications ?Medication ?Instructions ?Recorded ?Confirmed ?Last Taken ?Type ascorbate calcium (vitamin C) 500 500 mg PO DAILY 10/21/22 04/20/24 02/01/24 History mg tablet multivitamin (Multiple Vitamins 1 tablet PO DAILY 10/21/22 04/20/24 02/01/24 History tablet) hydroxychloroquine 200 mg tablet 200 mg PO DAILY 08/24/23 04/20/24 02/01/24 History Allergies Allergy/AdvReac Type Severity Reaction Status Date / Time No Known Allergies Allergy Verified 04/29/24 09:11 Review of Systems Review of Systems: CONSTITUTIONAL: Denies malaise, chills, sweats, or fever. EYES: Denies visual changes, redness, or discharge. ENT: Denies rhinorrhea, congestion, sinus pain, and sore throat. Reports right ear pain CARDIOVASCULAR: Denies chest pain, palpitations, or edema. RESPIRATORY: Denies cough. Denies dyspnea. GASTROINTESTINAL: Denies abdominal pain, nausea, vomiting, diarrhea SKIN: Denies rash or itching. MUSCULOSKELETAL: Denies myalgia. NEUROLOGIC: Denies headache. All systems reviewed & are unremarkable except as noted in HPI and below PMFSH Past Medical History Medical History Connective tissue disorder Adenomatous colon polyp IgA deficiency Family history of Crohn's disease Lymphocytic gastritis Postprandial abdominal pain in right upper quadrant Abdominal bruit Constipation Lower abdominal pain Change in bowel habits Elevated liver enzymes Migraines Hypothyroid Asthma Anemia Celiac disease Surgical History Surgical History History of endometrial ablation H/O colonoscopy H/O breast augmentation H/O release of tendon H/O: hysterectomy H/O ovarian cystectomy History of herniorrhaphy History of appendectomy Family History Family History (Reviewed 04/20/24 @ 13:00 by Sendy Brown [facility]) Father Hypertension Grandparent Breast cancer Lung cancer Hypertension Heart disease Diabetes mellitus Social History Social History (Reviewed 04/20/24 @ 13:00 by Sendy Brown [facility]) Smoking status: Never smoker Second hand tobacco smoke exposure: No Lack of Transportation: No Lack of Food: Never True Current Housing: I Have Housing Concerned About Future Housing: No Difficulty Paying Gas/Electric Bills: No Difficulty Paying for Meds: No Currently Unemployed: No Education: Bachelor's Degree Difficulty w/ Childcare or Family Care: No Living arrangements: with family Gender identity (if verbalized by the patient): Female Comments At time of signature, agree with nursing past medical, surgical, social and family history. There is no relevant family history pertinent to the presenting complaint Exam Narrative: GENERAL: Well-appearing, well-nourished, and in no acute distress. HEAD: Normocephalic EYES: PERRLA, conjunctivae clear ENT: Nares clear. Mucous membranes moist. TM pearly estrada with dull light reflex bilaterally; no tragal tenderness. Disruption noted in the right TM, appears old, no erythema noted or drainage. NECK: Supple. No lymphadenopathy CHEST: Clear to auscultation, breath sounds equal. No wheezing, rhonchi, rales, or stridor. No respiratory distress, speaks in full sentences. HEART: Regular rate and rhythm. No murmur heard. SKIN: Warm, dry, no rash. NEURO: Alert and oriented x3. PSYCH: Normal mood and affect Course Course Emergency Course: Patient is aware of diagnosis, understands and agrees to treatment plan. Anticipatory guidance given. Patient agrees to follow-up as directed and is aware of reasons to seek care at the emergency department. Portions of this record may have been created with voice recognition software Level of Care: Express Care Visit Vital Signs Vital signs: Reviewed. Medical Decision Making MDM Narrative Medical decision making narrative: I evaluated this in the [facility] care. History is obtained from patient who is an independent historian and physical exam was performed.? Available medical records were reviewed. ? Exam findings and relevant testing show no acute concerns or changes; patient is non-toxic appearing and is in no distress. Differential diagnosis considered: Montoya virus, strep pharyngitis, allergic rhinitis, upper respiratory tract infection, sinusitis, rhinosinusitis, nasopharyngitis. viral pharyngitis, otitis media, otitis externa, otitis effusion, cerumen impaction, foreign body. Exam findings show no acute concerns or changes; patient is non-toxic appearing and is in no distress. Patient is appropriate for outpatient treatment and follow-up. ? Differential diagnosis and treatment plan were discussed with the patient. Patient agrees with discussion and after shared medical decision making agrees with plan of care. All questions were answered to the patient's satisfaction. Patient is appropriate for outpatient treatment and follow-up. Critical Care Time Critical Care Time Critical Care Time: No Discharge Plan Discharge Clinical Impression: Fluid level behind tympanic membrane of both ears Patient Disposition: Home, Self-Care Condition: Stable Instructions: Fluid In The Ear (Serous Otitis Media) (ED) Additional Instructions: Take medication as directed. Recommend antihistamine such as Benadryl at night time and Zyrtec or Valeria during the day until symptoms improve Flonase nasal spray, 2 sprays in each nostril once daily until symptoms improve Also, recommend symptomatic treatment includes: rest, fluids, and increase humidity of the air at home. Recommend Acetaminophen as directed on the bottle to reduce fever, pain Please schedule a follow-up visit with your personal physician for further evaluation and treatment within 3-5days. If your symptoms persist, change or worsen significantly before you can contact your personal physician then please, without delay, go to the emergency department for further evaluation. Patient Language: Belizean Prescriptions: New methylprednisolone [Medrol (Jose J)] 4 mg tablets,dose pack See Rx Instructions .ROUTE .COMPLEX Qty: 21 0RF Rx Instructions: orally per package directions No Action amoxicillin 875 mg tablet 875 mg PO Q12H 10 Days Qty: 20 0RF prednisone 20 mg tablet 40 mg PO DAILY 5 Days Qty: 10 0RF hydrocodone-acetaminophen 5-325 mg tablet 1 tablet PO Q6H PRN (Reason: pain) 3 Days Qty: 12 0RF ofloxacin 0.3 % drops 5 drp otic (ear) BID 7 Days Qty: 5 0RF multivitamin [Multiple Vitamins] Tablet 1 tablet PO DAILY ascorbate calcium (vitamin C) 500 mg tablet 500 mg PO DAILY hydroxychloroquine 200 mg tablet 200 mg PO DAILY Rx Instructions: PRESCRIBED BY PORTIA sertraline 50 mg tablet 50 mg PO DAILY Qty: 90 3RF estradiol 0.5 mg tablet 1.5 mg PO DAILY Qty: 180 3RF levothyroxine 50 mcg tablet 50 mcg PO DAILY Qty: 90 3RF omeprazole 20 mg capsule,delayed release(DR/EC) 20 mg PO DAILY Qty: 90 3RF oseltamivir [Tamiflu] 75 mg capsule 75 mg PO DAILY Qty: 7 0RF Follow-up/Referrals: Marva Guerra [facility] [Primary Care Provider] - Time of Disposition: 09:10
[2024-04-29 09:02] VITALS: BP 105/70; PULSE 81; RESP 16; TEMP 36.4; O2SAT 99
== END 2024-04-29 09:14 | disposition home or self-care (01) ==
PROVIDERS: Emergency Provider Nurse Practitioner; PCP Nurse Practitioner
DX: H66.93 Otitis media, unspecified, bilateral (principal); D80.2 Selective deficiency of immunoglobulin A [IgA]; E03.9 Hypothyroidism, unspecified; J45.909 Unspecified asthma, uncomplicated
CPT/HCPCS: 99213; G0463

== ENCOUNTER 2024-09-20 12:51 | Outpatient (CLI) | payer OTHER, SELFPAY ==
--- NOTE | ~2024-09-20 | MM_ITS ---
EXAMINATION: MM scrn ramon implant BI w selene HISTORY: Screening mammogram TECHNIQUE: Craniocaudal and mediolateral oblique 3-D tomosynthesis images with implant displacement a nd synthetic 2-D images were generated. Craniocaudal and mediolateral oblique views of the breasts wi thout implant displacement were obtained using full field digital mammography. CAD analysis was submi tted and interpreted. COMPARISON: 09/13/2023 BREAST PARENCHYMAL COMPOSITION: Dense: The breasts are heterogeneously dense, which may obscure small masses FINDINGS: There is no evidence of suspicious mass, calcification, or architectural distortion to sugg est malignancy in either breast. There has been no suspicious interval change. IMPRESSION: 1. No mammographic evidence of malignancy. 2. Recommend routine screening mammography in one year. BI-RADS Category 1: Negative Reviewed, dictated and finalized at location A.
--- OUTSIDE RECORDS SUMMARY | 2024-09-20 14:14 | XMS_ITS | Clinical Summary ---
Author Organization [facility] Address [address] [place] [address] Care Team Providers Care Fork Repairer Name Role Phone Unavailable Primary Care Provider Unavailabl e Source Comments [facility],non-owned Affiliates and Associated Physician Practices is amultiple site organization consisting of ambulatory clinics and hospital sitesin [place], [place], [place] and [place]. This disclosure is being madepursuant to the Care Everywhere program and may not contain all information available regarding this patient. Last updated 17.[facility] [employer] Social History Tobacco Use Types Packs/Day Years Used Date Smoking Tobacco: Never Assessed Comments Unknown Sex and Gender Information Value Date Recorded Sex Assigned at Not on file Legal Sex Female 7:06 AM CDT Gender Identity Not on file Sexual Orientation Not on file Plan of Treatment Health Maintenance Due Date Last Done Comments COLOGUARD (AGES 45-75) - COL ON CA SCREENING 1975 COLON MONITORING 1975 COLONOSCOPY - COLON CA SCREENING 1975 CT COLONOGRAPHY - COLON CA SCREENING 1975 Colorectal Cancer Screening 1975 FIT - COLON CA SCREENING 1975 FLEX SIG - COLON CA SCREENING 1975 LIPID TESTING 1975 MAMMOGRAM 1975 PAP SMEAR 1975 HIV SCREENING 10/27/1990 HEPATITIS C SCREENING 10/23/1993 DTAP/TDAP/TD VACCINES (1 - Tdap) 10/27/1994 HEPATITIS B VACCINE (1 of 3 - 19+ 3-dose series) 10/27/1994 COVID-19 VACCINE (1 - 2023-2 5 season) 2023 DEPRESSION SCREENING 04/05/2024 INFLUENZA VACCINE (Season Ended) 2024 ZOSTER VACCINE (1 of 2) 10/27/2025 HIB VACCINE Aged Out No longer eligi ble based on patient's age to complete this topic HPV VACCINE Aged Out No longer eligi ble based on patient's age to complete this topic MENINGOCOCCAL (Group B) VACC INE SHARED DECISION-MAKING Aged Out No longer eligibl e based on patient's age to complete this topic MENINGOCOCCAL GROUPS A/C/Y/W VACCINE Aged Out No longer eligible b ased on patient's age to complete this topic PNEUMOCOCCAL VACCINE Aged Out No long er eligible based on patient's age to complete this topic Insurance AET[employer] AETNA [facility] Address: [facility] [id number] [place] [id number] SELF PAY NO INSURANCE Member Subscriber Plan / Payer (Ef fective for All Dates) Name:Anayeli Raman Member ID:Not on file Relation to Subscriber:Not on file Name:ANAYELI RAMAN Subscriber ID:Not on file (Home) Address: [address] [place] [id number] Payer ID:Not on file Group ID:Not on file Type:Self Pay Address: [place], [place] [employer] * Guarantor: ANAYELI RAMAN Account Type Relation to Patient Date of Phone Billing Address Personal/Family Spouse
--- OUTSIDE RECORDS SUMMARY | 2024-09-20 14:14 | XMS_ITS | Referral Summary ---
Author Organization [facility] Address [address] [place] [address] Care Team Providers Care Cooker Helper Name Role Phone Marva Guerra NP Primary Care Provider [phone] Encounters Date Type Department Care Team Description 08/03/2024 Orders Only [facility] Scheduling [address] [place] [address] Case, Sahil Jefferson Jr., MD SOB (shortness of breath) (Primary Dx) 07/18/2024 Orders Only [facility] Rheumatology [address] [facility] [address] [place] [address] Lon Irby MD SOB (shortness of breath) (Primary Dx) 07/05/2024 12:12 PM CDT - 07/05/2024 11:59 PM CDT Hospital Encounter [facility] Respiratory Therapy [address] [place] [phone] MCTD (mixed connective tissue disease) Discharge Disposition: Discharge to home or self care 07/05/2024 12:12 PM CDT - 07/05/2024 11:59 PM CDT Hospital Encounter [facility] Cardiac Testing [address] [place] [phone] MCTD (mixed connective tissue disease) Discharge Disposition: Discharge to home or self care 07/05/2024 12:11 PM CDT - 07/05/2024 11:59 PM CDT Hospital Encounter [facility] CT [address] [place] [id number] MCTD (mixed connective tissue disease) Discharge Disposition: Discharge to home or self care 06/22/2024 Documentation [facility] Rheumatology [address] [facility] 5[address] [place] [address] [place] [address] Susie Forrest, Lon Lopez MD from Last 3 Months Allergies No known active allergies Medications levothyroxine (SYNTHROID) 50 mcg tablet Take 1 tablet (50 mcg total) by mouth daily 01/29/2023 Active MULTIVITAMIN ORAL Take by mouth daily Active estradioL (ESTRACE) 0.5 mg tablet Take 3 tablets (1.5 mg total) by mouth daily 04/20/2024 Active hydroxychloroqu ine (PLAQUENIL) 200 mg tabletIndicatio ns:MCTD (mixed connective tissue disease) Take 1 tablet (200 mg total) by mouth 2 (two) times a day 180 tablet 2 07/17/2024 Active Active Problems Problem Noted Date Diagnosed Date Arm pain, left 04/13/2024 TOS (thoracic outlet syndrome) 04/13/2024 Chronic pain of both hips 04/13/2024 Arthralgia of both hands 06/09/2023 MCTD (mixed connective tissue disease) Easy bruising 06/09/2023 Ankle edema, bilateral 03/11/2023 Bilateral hip pain 03/10/2023 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 More than three times a week 11/16/2023 How often do you get togethe r with friends or relatives? Patient declined 11/16/2023 How often do you attend [facility] or mormon services? Patient declined 11/16/2023 Do you belong to any clubs o r organizations such as mormon groups, unions, fraternal or athletic groups, or school groups? No 11/16/2023 How often do you attend meet ings of the clubs or organizations you belong to? Not asked 11/16/2023 Are you , , di vorced, , never , or living with a partner? 11/16/2023 Overall Financial Resource Strain (CARDIA) Answe r Date Recorded How hard is it for you to pa y for the very basics like food, housing, medical care, and heating? Not hard at all 11/16/2023 PHQ-2 Answer Date Recorded Patient Health Questionnaire-2 Score 0 11/16/2023 [facility] Occupat ional [facility] - Occupational Stress Questionnaire Answer Date Recorded Do you feel stress - tense, restless, nervous, or anxious, or unable to sleep at night because your mind is troubled all the time - these days? Not at all 11/16/2023 Exercise Vital Sign Answer Date Recorde d On average, how many days pe r week do you engage in moderate to strenuous exercise (like a brisk walk)? 5 days 11/16/2023 On average, how many minutes do you engage in exercise at this level? 30 min 11/16/2023 Hunger Vital Sign Answer Date Recorded Within the past 12 months, y ou worried that your food would run out before you got the money to buy more. Never true 11/16/19 24 Within the past 12 months, t he food you bought just didn't last and you didn't have money to get more. Never true 11/16/2023 PRAPARE - Transportation Answer Date Re corded In the past 12 months, has l ack of transportation kept you from medical appointments or from getting medications? No 11/03 In the past 12 months, has l ack of transportation kept you from meetings, work, or from getting things needed for daily living? No 11/16/2023 Housing Stability Vital Sign Answer Brady e Recorded In the last 12 months, was t here a time when you were not able to pay the mortgage or rent on time? No 06/09/2023 In the last 12 months, how many places have you lived? 3 06/09/2023 In the last 12 months, was t here a time when you did not have a steady place to sleep or slept in a correction (including now)? No 06/09/2023 Comments Unknown Sex and Gender Information Value Date Recorded Sex Assigned at Not on file Legal Sex Female 12:23 PM CDT Gender Identity Not on file Sexual Orientation Not on file Last Filed Vital Signs Vital Sign Reading Time Taken Comments Blood Pressure 117/79 05/23/2024 9:52 AM MARKETING COMMUNICATIONS COORDINATOR Pulse 72 07/05/2024 1:00 PM CDT Temperature 36.1 C (97 F) 05/23/2024 9:52 AM MARKETING COMMUNICATIONS COORDINATOR Respiratory Rate 16 07/05/2024 1:00 PM CDT Oxygen Saturation 97% 07/05/2024 1:00 PM CDT Inhaled Oxygen Concentration - - Weight 69.8 kg (153 lb 12.8 oz) 05/23/2024 9:52 AM MARKETING COMMUNICATIONS COORDINATOR Height 162.6 cm (5' 4) 05/23/2024 9:52 AM MARKETING COMMUNICATIONS COORDINATOR Body Mass Index 26.4 05/23/2024 9:52 AM MARKETING COMMUNICATIONS COORDINATOR Plan of Treatment Not on file Procedures Procedure Name Priority Date/Time Associated Diagnosis Comments PULMONARY FUNCTION TEST (PFT) Routine 07/05/2024 1:43 PM CDT MCTD (mixed connective tissue disease) TRANSTHORACIC ECHO (TTE) COMPLETE W DOPPLER/CF WO CONTRAST Routine 07/05/2024 1:10 PM CDT MCTD (mixed connective tissue disease) CT CHEST HIGH RESOLUTION WO CONTRAST Schedule Routine, Read Routine (OP Routine) 07/05/2024 12:26 PM CDT MCTD (mixed connective tissue disease) from Last 3 Months Results * (ABNORMAL) Pulmonary Function Test - (07/05/2024 1:43 PM CDT) FVC PRE 3.58 2.74 - 4.27 L [facility] FEV1 PRE 2.71 2.19 - 3.39 L [facility] [id number] 75.56 69.64 - 90.02 % [facility] LMQ83-33% PRE 2.15 1.59 - 4.31 L/s [facility] PEF PRE 6.80 4.91 - 7.87 L/s [facility] DLCOc SB 20.06 18.77 - 30.23 ml/(min*mm Hg) [facility] DLCO/VA PRE 4.26 3.43 - 6.49 ml/(min*mm Hg*L) [facility] VA 4.71(A) 4.79 - 4.79 L [facility] TLC PRE 5.51 3.95 - 5.93 L [facility] VC PRE 3.58 2.45 - 3.83 L [facility] IC PRE 2.78(A) 2.16 - 2.16 L [facility] FRC PL PRE 2.72 1.87 - 3.51 L [facility] ERV PRE 0.80(A) 0.98 - 0.98 L [facility] RV PRE 1.92 1.13 - 2.29 L [facility] VTG 3.00 L [facility] RAW PRE 1.47(A) 3.06 - 3.06 cmH2O*s/L [facility] Anatomical Region Laterality Modality PFT 07/05/2024 1:17 PM CDT Narrative 07/05/2024 2:02 PM CDT Normal spirometry without obstruction. Lung volumes are normal without restriction. DLCO is normal without diffusion impairment. Electronically signed by Declan East MD, [facility] Pulmonary and Critical Care Medicine [facility] Lon Forrest MD PFT OR DERABLES Final Result * TRANSTHORACIC ECHO (TTE) COMPLETE W DOPPLER/CF WO CONTRAST (07/05/2024 1:10 PM CDT) LV EF 55-60 % CONS SCIMAGE Anatomical Region Laterality Modality Ultrasound 07/05/2024 12:4 1 PM CDT Narrative 07/06/2024 3:40 PM CDT Transthoracic Echocardiographic Report Patient Name: WILLIAM RAMAN : 1975 (48y 8m) Gender: F Study Date: 07/05/2024 12:41:02 PM Ht(Inch): 64 Wt(Lb): 153 BSA: 1.77 Survey Instrument Operator: Skylar Rodríguez MERE Order Provider: LON IRBY Heart Rate: 68 BMI: 26.26 BP: 117 / 79 Ref Provider: LON IRBY PROCEDURES: Echocardiographic Report: ([id number]) Transthoracic complete echo, 2D, spectral and tissue Doppler, color flow Doppler, M-mode. 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 FINDINGS: Left Ventricle: Normal left ventricular systolic function. The Ejection Fraction (Peraza's) is measured at 59 %. The Ejection Fraction is visually estimated to be 55-60 %. Diastolic Function Left ventricular diastolic function is normal. Regional Wall Motion: There are no regional wall motion abnormalities. Right Ventricle: Normal right ventricular size. Normal right ventricular systolic function. Left Atrium: The left atrium is normal in size. Right Atrium: The right atrium is normal in size. Atrial Septum: No shunt by color Doppler. Mitral Valve: Normal mitral valve leaflet structure. No mitral regurgitation seen. No mitral valve stenosis. Aortic Valve: Trileaflet aortic valve. No aortic regurgitation seen. No aortic valve stenosis. The mean transaortic gradient is 3 mmHg. The aortic valve area by the continuity equation (using VTI) is 2.78 cm2. The aortic valve area by the continuity equation (using Peak Craig) is 2.65 cm2. Tricuspid Valve: The tricuspid valve demonstrates normal leaflet structure. There is mild tricuspid regurgitation. The estimated pulmonary artery systolic pressure is 28 mmHg. Normal estimated pulmonary artery systolic pressure. No tricuspid valve stenosis. Pulmonic Valve: No evidence of pulmonic regurgitation. Aorta: Normal aortic root. The aortic sinus is normal in size. The ascending aorta is normal in size. IVC: IVC is normal in size. CONCLUSIONS: 1. Normal left ventricular systolic function. The Ejection Fraction (Peraza's) is measured at 59 %. The Ejection Fraction is visually estimated to be 55-60 %. 2. There is mild tricuspid regurgitation. MEASUREMENTS: 2D/MM Value Range Doppler Value LVIDd 2D 4.39 cm [ 3.50 - 5.70 ] AV Peak Craig 1.23 m/s LVIDs 2D 3.04 cm [ 3.10 - 4.60 ] AV Peak PG 6.05 mmHg IVSd 2D 0.60 cm [ 0.60 - 1.20 ] AV Mean PG 3.00 mmHg LVPWd 2D 0.73 cm [ 0.60 - 1.10 ] AV VTI 25.00 cm LV Thickness Ratio 0.82 LVOT Peak Craig 1.04 m/s LV Mass 2D 88.62 g LVOT Peak PG 4.33 mmHg LV Mass Index 2D 50.07 g/m2 LVOT Mean PG 2.00 mmHg RWT 0.33 LVOT VTI 22.10 cm EDV Mod BP 71.00 ml [ 46.00 - 106.00 ] LVOT Diam 2.00 cm LV EDV Index 40.11 ml/m2 ALICIA VTI 2.78 cm2 ESV Mod BP 29.50 ml [ 14.00 - 42.00 ] ALICIA Vmax 2.65 cm2 EF Mod BP 59 % [ 54 - 74 ] LVOT/AV VTI 0.88 - Dimensionless index (DVI) Visually Estimated EF 55-60 % MV E Peak Craig 0.86 m/s LA Dimension 2D 3.00 cm [ 1.90 - 4.00 ] MV A Peak Craig 0.83 m/s AoR Diam 2D 2.70 cm [ 2.00 - 3.70 ] MV E/A 1.00 ratio Ao Root Index 1.53 cm/m2 [ 1.00 - 2.00 ] MV Decel Time 211.00 msec Med E` Craig 10.60 cm/sec Lat E` Craig 12.40 cm/sec Average E/E` 7.48 RV S` 11.50 cm/sec TR Peak Craig 2.65 m/s TR Peak PG 28.1 mmHg PV Peak Craig 1.09 m/s PV Peak PG 4.75 mmHg - COMPARISONS: Compared to prior study completed on No significant changes. MR is less. ATTESTATION: I have reviewed and interpreted the pertinent images and measurements of this study. I attest to the conclusions in the final report that is provided above. DISCLAIMER: The study images and the final report will be retained in the patient chart by the [facility] for the legally required time period. This chart constitutes the legal record of any testing performed. Electronically Signed By: Genesis Vera MD 07/06/2024 3:40:11 PM CDT Procedure Note Genesis Vera MD - 07/06/2024 Transthoracic Echocardiographic Report Patient Name: WILLIAM RAMAN : 1975 (48y 8m) Gender: F Study Date: 07/05/2024 12:41:02 PM Ht(Inch): 64 Wt(Lb): 153 BSA: 1.77 Survey Instrument Operator: Skylar Rodríguez MERE Order Provider: LON IRBY Heart Rate: 68 BMI: 26.26 BP: 117 / 79 Ref Provider: LON NELSON PROCEDURES: Echocardiographic Report: ([id number]) Transthoracic complete echo, 2D,spectral and tissue Doppler, color flow Doppler, M-mode. 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 FINDINGS: Left Ventricle: Normal left ventricular systolic function. The EjectionFraction (Peraza's) is measured at 59 %. The Ejection Fraction is visuallyestimated to be 55-60 %. Diastolic Function Left ventricular diastolic function is normal. Regional Wall Motion: There are no regional wall motion abnormalities. Right Ventricle: Normal right ventricular size. Normal right ventricularsystolic function. Left Atrium: The left atrium is normal in size. Right Atrium: The right atrium is normal in size. Atrial Septum: No shunt by color Doppler. Mitral Valve: Normal mitral valve leaflet structure. No mitralregurgitation seen. No mitral valve stenosis. Aortic Valve: Trileaflet aortic valve. No aortic regurgitation seen. Noaortic valve stenosis. The mean transaortic gradient is 3 mmHg. The aortic valve areaby the continuity equation (using VTI) is 2.78 cm2. The aortic valve area by thecontinuity equation (using Peak Craig) is 2.65 cm2. Tricuspid Valve: The tricuspid valve demonstrates normal leafletstructure. There is mild tricuspid regurgitation. The estimated pulmonary artery systolic pressureis 28 mmHg. Normal estimated pulmonary artery systolic pressure. No tricuspid valvestenosis. Pulmonic Valve: No evidence of pulmonic regurgitation. Aorta: Normal aortic root. The aortic sinus is normal in size. Theascending aorta is normal in size. IVC: IVC is normal in size. CONCLUSIONS: 1. Normal left ventricular systolic function. The Ejection Fraction(Peraza's) is measured at 59 %. The Ejection Fraction is visually estimated to be 55-60%. 2. There is mild tricuspid regurgitation. MEASUREMENTS: 2D/MM Value Range DopplerValue LVIDd 2D 4.39 cm [ 3.50 - 5.70 ] AV Peak Vel1.23 m/s LVIDs 2D 3.04 cm [ 3.10 - 4.60 ] AV Peak PG6.05 mmHg IVSd 2D 0.60 cm [ 0.60 - 1.20 ] AV Mean PG3.00 mmHg LVPWd 2D 0.73 cm [ 0.60 - 1.10 ] AV VTI25.00 cm LV Thickness Ratio 0.82 LVOT PeakVel 1.04 m/s LV Mass 2D 88.62 g LVOT Peak PG4.33 mmHg LV Mass Index 2D 50.07 g/m2 LVOT Mean PG2.00 mmHg RWT 0.33 LVOT VTI22.10 cm EDV Mod BP 71.00 ml [ 46.00 - 106.00 ] LVOT Diam2.00 cm LV EDV Index 40.11 ml/m2 ALICIA VTI2.78 cm2 ESV Mod BP 29.50 ml [ 14.00 - 42.00 ] ALICIA Vmax2.65 cm2 EF Mod BP 59 % [ 54 - 74 ] LVOT/AV VTI0.88 - Dimensionless index (DVI) Visually Estimated EF 55-60 % MV E PeakVel 0.86 m/s LA Dimension 2D 3.00 cm [ 1.90 - 4.00 ] MV A PeakVel 0.83 m/s AoR Diam 2D 2.70 cm [ 2.00 - 3.70 ] MV E/A1.00 ratio Ao Root Index 1.53 cm/m2 [ 1.00 - 2.00 ] MV DecelTime 211.00 msec Med E` Craig 10.60 cm/sec Lat E` Craig 12.40 cm/sec Average E/E` 7.48 RV S` 11.50 cm/sec TR Peak Craig 2.65 m/s TR Peak PG 28.1 mmHg PV Peak Craig 1.09 m/s PV Peak PG 4.75 mmHg - COMPARISONS: Compared to prior study completed on No significant changes. MR is less. ATTESTATION: I have reviewed and interpreted the pertinent images and measurements ofthis study. I attest to the conclusions in the final report that is provided above. DISCLAIMER: The study images and the final report will be retained in the patientchart by the [facility] for the legally required time period. This chart constitutesthe legal record of any testing performed. Electronically Signed By: Genesis Vera MD 07/06/2024 3:40:11 PM CDT Lon Forrest MD CV ECH O PROCEDURES Final Result * CT Chest High Resolution WO Contrast (07/05/2024 12:26 PM CDT) Anatomical Region Laterality Modality Chest N/A Computed Tomogra phy 07/11/2024 8:50 AM CDT Narrative 07/11/2024 9:31 AM CDT EXAM DESCRIPTION: CT CHEST HIGH RESOLUTION WO CONTRAST REASON FOR STUDY: Dyspnea on exertion Dyspnea on exertion, MCTD (mixed connective tissue disease) TECHNIQUE: CT scan of the chest performed without intravenous contrast using helical scanning technique. Inspiratory and expiratory images were acquired. Prone inspiratory images were acquired. Reconstructed coronal and sagittal MPR images reviewed. All images stored on PACS. Automated exposure control was used as a dose optimization technique for this examination. COMPARISON: None. REFERENCE: Per ACR white paper recommendations, unless otherwise specified no follow-up imaging is recommended for incidental renal and adrenal lesions per consensus recommendations based on imaging criteria. Further lab evaluation could be pursued based on clinical findings. FINDINGS: HARDWARE/LINES/TUBES: None. VASCULATURE: No thoracic aortic aneurysm. MEDIASTINUM/HEART: Heart size within normal limits. No significant pericardial effusion. Esophagus is unremarkable. CORONARY ARTERY CALCIFICATION: No significant coronary atherosclerotic calcifications. LYMPH NODES: No pathologically enlarged thoracic lymphadenopathy. AIRWAY/LUNGS/PLEURA: Lung Volumes: Normal. Reticulation: Absent. Traction Bronchiectasis: Absent. Honeycombing: Absent. Nodularity: Absent. Cysts: Absent. Ground-glass Opacities: Absent Consolidation: Absent. Mosaic Attenuation/Air Trapping: Present, but not a dominant feature seen only on the expiratory phase images. Axial Distribution: Not applicable. Zonal Distribution: Not applicable. Arterial Embalmer Time: Baseline examination (or all prior imaging very recent). Complications: None. Other: Central airways are grossly patent. No focal consolidation, pneumothorax, or pleural effusion. Mild biapical pleural-parenchymal scarring. Small pulmonary nodules including a 5 mm nodule along the right horizontal fissure which appears flat on coronal imaging suggestive of a intra fissural lymph node (3; 39). 3 mm perifissural nodule along the right oblique fissure (3; 41). No definite suspicious pulmonary nodule. UPPER ABDOMEN: No significant abnormality. BONES/SOFT TISSUES: Bilateral breast implants. No aggressive appearing osseous lesions. No acute osseous abnormality. Normal-appearing thyroid. IMPRESSION: No evidence of interstitial lung disease. Minimal mosaic attenuation which may reflect small airway or small vessel disease. Small pulmonary nodules measuring up to 5 mm. Per Fleischner Society Guidelines, no follow-up needed if patient is low-risk (and has no known or suspected primary neoplasm). Non-contrast chest CT can be considered in 12 months if patient is high-risk. THIS IS AN ELECTRONICALLY VERIFIED FINAL REPORT 07/11/2024 9:31 AM - Electronically signed by Satya Cooney M.D. NS: NS Report ID: [id number] Reading Location: [place] [address] Procedure Note Satya Cooney MD - 07/11/2024 EXAM DESCRIPTION: CT CHEST HIGH RESOLUTION WO CONTRAST REASON FOR STUDY: Dyspnea on exertion Dyspnea on exertion, MCTD (mixed connective tissue disease) TECHNIQUE: CT scan of the chest performed without intravenous contrastusing helical scanning technique. Inspiratory and expiratory images wereacquired. Prone inspiratory images were acquired. Reconstructed coronal andsagittal MPR images reviewed. All images stored on PACS. Automated exposurecontrol was used as a dose optimization technique for this examination. COMPARISON: None. REFERENCE: Per ACR white paper recommendations, unless otherwise specifiedno follow-up imaging is recommended for incidental renal and adrenal lesionsper consensus recommendations based on imaging criteria. Further labevaluation could be pursued based on clinical findings. FINDINGS: HARDWARE/LINES/TUBES: None. VASCULATURE: No thoracic aortic aneurysm. MEDIASTINUM/HEART: Heart size within normal limits. No significant pericardial effusion. Esophagus is unremarkable. CORONARY ARTERY CALCIFICATION: No significant coronary atherosclerotic calcifications. LYMPH NODES: No pathologically enlarged thoracic lymphadenopathy. AIRWAY/LUNGS/PLEURA: Lung Volumes: Normal. Reticulation: Absent. Traction Bronchiectasis: Absent. Honeycombing: Absent. Nodularity: Absent. Cysts: Absent. Ground-glass Opacities: Absent Consolidation: Absent. Mosaic Attenuation/Air Trapping: Present, but not a dominant feature seen only on the expiratory phase images. Axial Distribution: Not applicable. Zonal Distribution: Not applicable. Arterial Embalmer Time: Baseline examination (or all prior imaging veryrecent). Complications: None. Other: Central airways are grossly patent. No focal consolidation, pneumothorax, or pleural effusion. Mild biapical pleural-parenchymal scarring. Small pulmonary nodules including a 5 mm nodule along the right horizontal fissure which appears flat on coronal imaging suggestive of aintra fissural lymph node (3; 39). 3 mm perifissural nodule along the rightoblique fissure (3; 41). No definite suspicious pulmonary nodule. UPPER ABDOMEN: No significant abnormality. BONES/SOFT TISSUES: Bilateral breast implants. No aggressive appearing osseous lesions. No acute osseous abnormality. Normal-appearing thyroid. IMPRESSION: No evidence of interstitial lung disease. Minimal mosaic attenuation which may reflect small airway or small vessel disease. Small pulmonary nodules measuring up to 5 mm. Per Fleischner Society Guidelines, no follow-up needed if patient is low-risk (and has no knownor suspected primary neoplasm). Non-contrast chest CT can be considered in 12 months if patient is high-risk. THIS IS AN ELECTRONICALLY VERIFIED FINAL REPORT 07/11/2024 9:31 AM - Electronically signed by Satya Cooney M.D. NS: NS Report ID: [id number] Reading Location: [place] [address] Lon Forrest MD IMG CT PROCEDURES Final Result from Last 3 Months Insurance [facility] [address] Care Teams Cooker Helper Relationship Specialty Start Date End Date Marva Guerra NP PCP - General Nurse Practitioner 02/12/23
--- OUTSIDE RECORDS SUMMARY | 2024-09-20 14:14 | XMS_ITS | Clinical Summary ---
Author Organization [facility] Address [address] [place] [address] Care Team Providers Care Hide Inspector Name Role Phone Marva Guerra NP Primary Care Provider [phone] Allergies No known active allergies Medications levothyroxine [...] edema, bilateral 03/11/2023 Bilateral hip pain 03/10/2023 Anti-FLEXOGRAPHIC PRESS SET UP OPERATOR antibodies present 03/10/2023 Low back pain 03/10/2023 Abnormal uterine bleeding 05/25/2018 Asthma 05/25/2018 Irritable bowel syndrome 05/25/2018 Migraine 05/25/2018 Encounters Date Type Department Care Team Description 08/03/2024 Orders Only [facility] Scheduling [address] [place] [address] Sahil Mo Jr., MD SOB (shortness of breath) (Primary Dx) 07/18/2024 Orders Only [facility] Rheumatology [address] [facility] [address] [place] [address] Lon Irby MD SOB (shortness of breath) (Primary Dx) 07/05/2024 12:12 PM CDT - 07/05/2024 11:59 PM CDT Hospital Encounter [facility] Respiratory Therapy [address] [place] [address] MCTD (mixed connective tissue disease) Discharge Disposition: Discharge to home or self care 07/05/2024 12:12 PM CDT - 07/05/2024 11:59 PM CDT Hospital Encounter [facility] Cardiac Testing [address] [place] [address] MCTD (mixed connective tissue disease) Discharge Disposition: Discharge to home or self care 07/05/2024 12:11 PM CDT - 07/05/2024 11:59 PM CDT Hospital Encounter [facility] CT [address] [place] [address] MCTD (mixed connective tissue disease) Discharge Disposition: Discharge to home or self care 06/22/2024 Documentation [facility] Rheumatology [address] [facility] 5th [place] [address] [place] [address] Lon Irby MD from Last 3 Months Surgical History Surgery Date Site/Laterality Comments APPENDECTOMY 1994 BREAST SURGERY 2005 COSMETIC SURGERY Breast 2011 HERNIA REPAIR 1979 HYSTERECTOMY 2018 Medical History Medical History Date Comments Anemia On and off entire life Asthma From 13 yrs to 30yrs old Depression 2022 Migraines 2010 Thyroid disease Diagnosed 2021 Autoimmune disease Celiac 2020 Family History Medical History Relation Name Comments Hypertension Father Omar Heart disease Maternal Grandfather Hosea Cancer Maternal Grandmother Temitope Obesity Mother Amanda Relation Name Status Comments Father Omar Maternal Grandfather Hosea Maternal Grandmother [place] Mother Amanda Social History Tobacco Use Types Packs/Day Years [...] declined 11/16/2023 How often do you attend chur ch or spiritism services? Patient declined 11/16/2023 Do you belong to any clubs o r organizations such as congregation groups, unions, fraternal or athletic groups, or [...] Recorded Patient Health Questionnaire-2 Score 0 11/16/2023 [facility] Occupat ional [facility] - Occupational Stress Questionnaire Answer Date [...] place to sleep or slept in a snf (including now)? No 06/09/2023 Comments Unknown Sex and Gender Information Value Date Recorded Sex Assigned at Not on file Legal Sex Female 12:23 PM CDT Gender Identity Not on file Sexual Orientation Not on file Obstetrics History Last Filed Vital Signs Vital Sign Reading Time Taken Comments Blood Pressure 117/79 05/23/2024 9:52 AM CRIME SCENE EVIDENCE TECHNICIAN Pulse 72 07/05/2024 1:00 PM CDT Temperature 36.1 C (97 F) 05/23/2024 9:52 AM CRIME SCENE EVIDENCE TECHNICIAN Respiratory Rate 16 07/05/2024 1:00 PM CDT Oxygen Saturation 97% 07/05/2024 1:00 PM CDT Inhaled Oxygen Concentration - - Weight 69.8 kg (153 lb 12.8 oz) 05/23/2024 9:52 AM CRIME SCENE EVIDENCE TECHNICIAN Height 162.6 cm (5' 4) 05/23/2024 9:52 AM CRIME SCENE EVIDENCE TECHNICIAN Body Mass Index 26.4 05/23/2024 9:52 AM CRIME SCENE EVIDENCE TECHNICIAN Plan of Treatment Health Maintenance Due Date Last Done Comments Breast Cancer Screening-Mammogram 1975 Colon Cancer Screening-Colonoscopy 1975 Hepatitis C Screening 1975 DTaP/Tdap/Td Vaccine (1 - Tdap) 10/27/1986 Hepatitis B Screening 10/27/1993 Regular Well Visit/Exam 18-64 10/27/1993 Pneumococcal vaccine <65 (1 of 2 - PCV) 10/27/1994 Zoster Vaccine (1 of 2) 10/27/1994 Depression Screening 11/15/2024 11/16/2023, 06/09/2023, 03/10/2023 Influenza Vaccine (Season Ended) 2024 Procedures Procedure Name Priority Date/Time Associated Diagnosis [...] FVC PRE 3.58 2.74 - 4.27 L [facility] FEV1 PRE 2.71 2.19 - 3.39 L [facility] [id number] 75.56 69.64 - 90.02 % [facility] JCG87-15% PRE 2.15 1.59 - 4.31 L/s [facility] PEF PRE 6.80 4.91 - 7.87 L/s [facility] DLCOc SB 20.06 18.77 - 30.23 ml/(min*mm Hg) [facility] DLCO/VA PRE 4.26 3.43 - 6.49 ml/(min*mm Hg*L) [facility] VA 4.71(A) 4.79 - 4.79 L [facility] TLC PRE 5.51 3.95 - 5.93 L [facility] VC PRE 3.58 2.45 - 3.83 L [facility] IC PRE 2.78(A) 2.16 - 2.16 L [facility] FRC PL PRE 2.72 1.87 - 3.51 L [facility] ERV PRE 0.80(A) 0.98 - 0.98 L [facility] RV PRE 1.92 1.13 - 2.29 L [facility] VTG 3.00 L [facility] RAW PRE 1.47(A) 3.06 - 3.06 cmH2O*s/L [facility] Anatomical Region Laterality Modality PFT 07/05/2024 1:17 PM CDT Narrative 07/05/2024 2:02 PM CDT Normal spirometry without obstruction. Lung volumes are normal without restriction. DLCO is normal without diffusion impairment. Electronically signed by Declan East MD, [facility] Pulmonary and Critical Care Medicine [facility] Lon Everettkrzysztof Susie Forrest MD PFT OR DERABLES Final Result [...] PM Ht(Inch): 64 Wt(Lb): 153 BSA: 1.77 Service Restorer Emergency: Skylar Rodríguez [facility] Order Provider: LON IRBY Heart Rate: 68 BMI: 26.26 BP: 117 / 79 Ref Provider: LON IRBY PROCEDURES: Echocardiographic Report: ([id number]) Transthoracic complete echo, 2D, spectral and tissue [...] PM Ht(Inch): 64 Wt(Lb): 153 BSA: 1.77 Service Restorer Emergency: Skylar Rodríguez [facility] Order Provider: LON IRBY Heart Rate: 68 BMI: 26.26 BP: 117 / 79 Ref Provider: LESLIELON PROCEDURES: Echocardiographic Report: ([id number]) Transthoracic complete echo, 2D,spectral and tissue Doppler, [...] of any testing performed. Electronically Signed By: Gneesis Vera MD 07/06/2024 3:40:11 PM CDT Lon [...] Distribution: Not applicable. Zonal Distribution: Not applicable. Return To Service Inspector Time: Baseline examination (or all prior imaging [...] Satya Cooney M.D. NS: NS Report ID: [id number] Reading Location: [place] [address] Procedure Note Satya Cooney MD - 07/11/2024 [...] Distribution: Not applicable. Zonal Distribution: Not applicable. Return To Service Inspector Time: Baseline examination (or all prior imaging [...] Satya Cooney M.D. NS: NS Report ID: [id number] Reading Location: [place] [address] Lon Forrest MD IMG CT PROCEDURES Final Result from Last 3 Months Insurance [facility] HMO [facility] O Care Teams Hide Inspector Relationship Specialty Start Date End Date Marva Guerra NP PCP - General Nurse Practitioner 02/12/23
== END 2024-09-20 12:52 | disposition home or self-care (01) ==
LOC: CHSIMG 12:51
PROVIDERS: PCP Internal Medicine; Visit Provider Internal Medicine
DX: Z12.31 Encounter for screening mammogram for malignant neoplasm of breast (principal)
CPT/HCPCS: 77063; 77067

== ENCOUNTER 2024-11-20 12:57 | Emergency (ER) | payer OTHER, SELFPAY ==
--- NOTE | 2024-11-20 12:59 | ED_ITS ---
HPI - Female Genitourinary General Chief complaint: Urogenital-Female Stated complaint: Uti Symptoms Time Seen by Provider: 11/20/24 13:10 Source: patient Mode of arrival: ambulatory Limitations: no limitations History of Present Illness HPI Narrative: William is a 49-year-old female patient presenting to the clinic today with complaints of possible UTI. She reports over the last week she has had some burning, frequency, and urgency. States the symptoms did improve for a couple days however on Wednesday her symptoms got worse again. Reports some low back pain, nausea, lower abdominal pressure/pain, feeling feverish, body aches, and chills. She did no blood in her urine. Denies any vaginal discharge or odor. No concern for or STIs. Patient has been taking azo for her symptoms. Related Data Home Medications ?Medication ?Instructions ?Recorded ?Confirmed ?Last Taken ?Type multivitamin (Multiple Vitamins 1 tablet PO DAILY 10/21/22 11/03/24 02/01/24 History tablet) hydroxychloroquine 200 mg tablet 200 mg PO DAILY 08/24/23 11/03/24 02/01/24 History Allergies Allergy/AdvReac Type Severity Reaction Status Date / Time No Known Allergies Allergy Verified 11/03/24 11:11 [facility] Past Medical History Medical History Connective tissue disorder Adenomatous colon polyp IgA deficiency Family history of Crohn's disease Lymphocytic gastritis Postprandial abdominal pain in right upper quadrant Abdominal bruit Constipation Lower abdominal pain Change in bowel habits Elevated liver enzymes Migraines Hypothyroid Asthma Anemia Celiac disease Surgical History Surgical History History of endometrial ablation H/O colonoscopy H/O breast augmentation H/O release of tendon H/O: hysterectomy H/O ovarian cystectomy History of herniorrhaphy History of appendectomy Family History Family History Father Hypertension Grandparent Breast cancer Lung cancer Hypertension Heart disease Diabetes mellitus Social History Social History Smoking status: Never smoker Second hand tobacco smoke exposure: No Lack of Transportation: No Lack of Food: Never True Current Housing: I Have Housing Concerned About Future Housing: No Difficulty Paying Gas/Electric Bills: No Difficulty Paying for Meds: No Currently Unemployed: No Education: Bachelor's Degree Difficulty w/ Childcare or Family Care: No Living arrangements: with family Gender identity (if verbalized by the patient): Female Comments At the time of my signature, I reviewed and agree with the nursing past medical, surgical, social, and family history. There is no relevant family history pertinent to the patient complaint. Exam Narrative: General: Well-developed, well nourished, in no apparent distress. Head: Normocephalic, atraumatic. Cardio: Regular rate and rhythm, s1 and s2 normal, no murmur appreciated. Resp: Clear to auscultation bilaterally, no rhonchi, rales, wheezing or rubs. Abdomen: Soft, pliable, bowel sounds present in all quadrants, suprapubic tender to palpation, no organomegly, mild bilateral CVAT tenderness. Course Course Emergency Course: Portions of this record may have been created with voice recognition software. Level of Care: Express Care Visit Vital Signs Vital signs: Vital Signs Temperature 37.1 C 11/20/24 13:06 Pulse Rate 86 11/20/24 13:06 Respiratory Rate 14 11/20/24 13:06 Blood Pressure 108/80 11/20/24 13:06 Pulse Oximetry 100 11/20/24 13:06 Oxygen Delivery Room Air 11/20/24 13:06 Temperature 37.1 C 11/20/24 13:06 Pulse Rate 86 11/20/24 13:06 Respiratory Rate 14 11/20/24 13:06 Blood Pressure 108/80 11/20/24 13:06 Pulse Oximetry 100 11/20/24 13:06 Oxygen Delivery Room Air 11/20/24 13:06 Vital signs reviewed MDM - Female Genitourinary MDM Narrative Medical decision making narrative: At the time of visit patient is resting comfortably on the exam table. Patient appears to be nontoxic. Complaints of possible UTI. She reports over the last week she has had some burning, frequency, and urgency. States the symptoms did improve for a couple days however on Wednesday her symptoms got worse again. Reports some low back pain, lower abdominal pressure/pain, feeling feverish, body aches, and chills. She did no blood in her urine. Denies any vaginal discharge or odor. No concern for or STIs. Labs: Unable to dip urinalysis due to patient taking azo. We will send urine for culture Plan: I suspect patient has a UTI possibility of early pyelonephritis. Prescription for Augmentin was sent to the pharmacy. Supportive measures were discussed with the patient and they voiced understanding discharge instructions and agrees to treatment plan. Return precautions reviewed Differential Diagnosis Differential diagnosis: Likely urinary tract infection, bacterial vaginosis, vaginitis, cystitis and other (Pyelonephritis, nephrolithiasis, ureterolithiasis) Discharge Plan Discharge Clinical Impression: UTI (urinary tract infection) Qualifiers: Urinary tract infection type: acute cystitis Hematuria presence: with hematuria Qualified Code(s): N30.01 - Acute cystitis with hematuria Patient Disposition: Home Condition: Stable Instructions: Antibiotic Form, Urinary Tract Infection in Women (ED) Additional Instructions: Unable to dip urinalysis in the clinic today. We will send urine for culture. Take Augmentin as prescribed Increase fluids and stay well hydrated Wipe front to back. May use wet wipes. Avoid tub baths If sexually active- pee before and after intercourse. Wear cotton panties Avoid tight clothing up against the genitals Follow up with your PCP in 1 week if symptoms persist. Patient Language: Lao Prescriptions: New amoxicillin-pot clavulanate 875-125 mg tablet 1 tablet PO Q12H 7 Days Qty: 14 0RF No Action multivitamin [Multiple Vitamins] Tablet 1 tablet PO DAILY hydroxychloroquine 200 mg tablet 200 mg PO DAILY Rx Instructions: PRESCRIBED BY PORTIA levothyroxine 50 mcg tablet 50 mcg PO DAILY Qty: 90 3RF omeprazole 20 mg capsule,delayed release(DR/EC) 20 mg PO DAILY Qty: 90 3RF estradiol 0.5 mg tablet 1.5 mg PO DAILY Qty: 180 1RF sertraline 50 mg tablet 25 mg PO DAILY Qty: 30 2RF Follow-up/Referrals: Marva Guerra IT QUALITY ASSURANCE ANALYST [Primary Care Provider] - Time of Disposition: 13:16 Quality NIHSS Nursing Documentation ED NIHSS nursing documentation: reviewed/agree
[2024-11-20 13:06] VITALS: BP 108/80; PULSE 86; RESP 14; TEMP 37.1; O2SAT 100
== END 2024-11-20 13:19 | disposition home or self-care (01) ==
PROVIDERS: Emergency Provider Nurse Practitioner Family; PCP Nurse Practitioner
DX: N30.01 Acute cystitis with hematuria (principal); E03.9 Hypothyroidism, unspecified; J45.909 Unspecified asthma, uncomplicated; K90.0 Celiac disease
CPT/HCPCS: 87086; 99213; G0463

== ENCOUNTER 2024-12-13 14:07 | Emergency (ER) | payer OTHER, SELFPAY ==
--- NOTE | 2024-12-13 14:09 | ED_ITS ---
HPI - URI/Sore Throat General Chief Complaint: Upper Respiratory Infection Stated Complaint: COUGH/CONGESTION/EARACHE Time Seen by Provider: 12/13/24 14:22 Source: patient and RN notes reviewed Mode of arrival: ambulatory Limitations: no limitations History of Present Illness HPI Narrative: 49-year-old female presents with concern for several day history of nasal congestion, rhinorrhea and bilateral ear pain. Reports ear pain is worse on the right. Reports occasional cough. She reports history of having ear drum rupture with ear infection and is concerned about that. She has been taking DayQuil and Joseph MD elicited complaint: nasal congestion Related Data Home Medications ?Medication ?Instructions ?Recorded ?Confirmed ?Last Taken ?Type multivitamin (Multiple Vitamins 1 tablet PO DAILY 10/0311/03/24 02/01/24 History tablet) hydroxychloroquine 200 mg tablet 200 mg PO DAILY 08/2311/03/24 02/01/24 History Allergies Allergy/AdvReac Type Severity Reaction Status Date / Time No Known Allergies Allergy Verified 12/13/24 14:24 Review of Systems Review of Systems: CONSTITUTIONAL: Denies malaise, chills, sweats, or fever. EYES: Denies visual changes, redness, or discharge. ENT: Reports rhinorrhea, congestion, otalgia CARDIOVASCULAR: Denies chest pain, palpitations, or edema. RESPIRATORY: Reports occasional cough. Denies dyspnea. GASTROINTESTINAL: Denies abdominal pain, nausea, vomiting, diarrhea SKIN: Denies rash or itching. MUSCULOSKELETAL: Denies myalgia. NEUROLOGIC: Denies headache. All systems reviewed & are unremarkable except as noted in HPI and below PMFSH Past Medical History Medical History Connective tissue disorder Adenomatous colon polyp IgA deficiency Family history of Crohn's disease Lymphocytic gastritis Postprandial abdominal pain in right upper quadrant Abdominal bruit Constipation Lower abdominal pain Change in bowel habits Elevated liver enzymes Migraines Hypothyroid Asthma Anemia Celiac disease Surgical History Surgical History History of endometrial ablation H/O colonoscopy H/O breast augmentation H/O release of tendon H/O: hysterectomy H/O ovarian cystectomy History of herniorrhaphy History of appendectomy Family History Family History Father Hypertension Grandparent Breast cancer Lung cancer Hypertension Heart disease Diabetes mellitus Social History Social History Smoking status: Never smoker Second hand tobacco smoke exposure: No Lack of Transportation: No Lack of Food: Never True Current Housing: I Have Housing Concerned About Future Housing: No Difficulty Paying Gas/Electric Bills: No Difficulty Paying for Meds: No Currently Unemployed: No Education: Bachelor's Degree Difficulty w/ Childcare or Family Care: No Living arrangements: with family Gender identity (if verbalized by the patient): Female Comments At time of signature, agree with nursing past medical, surgical, social and family history. There is no relevant family history pertinent to the presenting complaint Exam Narrative: GENERAL: Well-appearing, well-nourished, and in no acute distress. HEAD: Normocephalic EYES: PERRLA, conjunctivae clear ENT: Nares clear,. Mucous membranes moist. TM pearly estrada with dull light reflex bilaterally; no tragal tenderness. Oropharynx not erythematous without lesions. Tonsils not enlarged and without exudate, no drooling, no hoarseness, no trismus, uvula midline. NECK: Supple. No lymphadenopathy CHEST: Clear to auscultation, breath sounds equal. No wheezing, rhonchi, rales, or stridor. No respiratory distress, speaks in full sentences. HEART: Regular rate and rhythm. No murmur heard. SKIN: Warm, dry, no rash. NEURO: Alert and oriented x3. PSYCH: Normal mood and affect Course Course Emergency Course: Patient is aware of diagnosis, understands and agrees to treatment plan. Anticipatory guidance given. Patient agrees to follow-up as directed and is aware of reasons to seek care at the emergency department. Portions of this record may have been created with voice recognition software Level of Care: Express Care Visit Vital Signs Vital signs: Reviewed. MDM - URI/Sore Throat MDM Narrative Medical decision making narrative: Differential diagnosis considered: Montoya virus, strep pharyngitis, allergic rhinitis, upper respiratory tract infection, sinusitis, rhinosinusitis, nasopharyngitis. viral pharyngitis, otitis media, otitis externa, pneumonia, bronchitis, viral cough syndrome, viral syndrome, and influenza. Exam findings show no acute concerns or changes; patient is non-toxic appearing and is in no distress. Patient is appropriate for outpatient treatment and follow-up. Lab Data Attestation: I reviewed the patient's lab results. Critical Care Time Critical Care Time Critical Care Time: No Discharge Plan Discharge Clinical Impression: Fluid level behind tympanic membrane of right ear, COVID Patient Disposition: Home Condition: Stable Instructions: Fluid In The Ear (Serous Otitis Media) (ED), How to Recover from COVID-19 at Home (ED) Additional Instructions: Your rapid COVID test is positive. COVID is a virus, antibiotics are not effective against viruses. Your body has to kill viruses. ? Stay home when you are sick, except to get medical care. ? Stay home until your symptoms are resolving and you haven't had a fever for 24 hours. ? If you are self isolating at home where others live, use a separate room and bathroom for sick household members (if possible). Clean any shared rooms as needed, to avoid transmitting the virus. ? Wash your hands often with soap and water for at least 20 seconds, especially after blowing your nose, coughing, or sneezing; going to the bathroom; and before eating or preparing food. ? If soap and water are not available, use an alcohol-based hand animation artist with at least 60% alcohol. ? Have a supply of clean, disposable face masks. Everyone, no matter their COVID diagnosis, should wear face masks while in the home. - Over the counter medications such as Tylenol every 4 hours, ibuprofen every 6 hours (you can alternate these for maximum effect), Mucinex DM for cough, and psuedoephedrine (you must ask the pharmacist for this) can help relieve symptoms while your body fights off the virus. Watch for symptoms and learn when to seek emergency medical attention. If someone is showing any of these signs, seek emergency medical care immediately: ? Trouble breathing ? Persistent chest pain/pressure ? Confusion ? Inability to wake or stay awake ? Bluish lips or face Call 911 or call ahead to your local emergency room: Notify the edger machine operator that you are seeking care for someone who has or may have COVID Patient Language: [place] Citizen Prescriptions: New methylprednisolone [Medrol (Jose J)] 4 mg tablets,dose pack See Rx Instructions .ROUTE .COMPLEX Qty: 21 0RF Rx Instructions: orally per package directions fluticasone propionate [Flonase Allergy Relief] 50 mcg/actuation spray,suspension 2 spray NASAL DAILY 14 Days Qty: 15.8 0RF Rx Instructions: administer into each nostril No Action multivitamin [Multiple Vitamins] Tablet 1 tablet PO DAILY hydroxychloroquine 200 mg tablet 200 mg PO DAILY Rx Instructions: PRESCRIBED BY RHEUM levothyroxine 50 mcg tablet 50 mcg PO DAILY Qty: 90 3RF omeprazole 20 mg capsule,delayed release(DR/EC) 20 mg PO DAILY Qty: 90 3RF estradiol 0.5 mg tablet 1.5 mg PO DAILY Qty: 180 1RF sertraline 50 mg tablet 25 mg PO DAILY Qty: 30 2RF Follow-up/Referrals: Marva Guerra TEACHER ADVISOR [Primary Care Provider, Internal Medicine] Stand Alone Forms: Work/School Release IP Time of Disposition: 14:31
[2024-12-13 14:18] VITALS: BP 106/73; PULSE 94; RESP 16; TEMP 36.2; O2SAT 99
[2024-12-13 14:31] LABS: EDCOVIDSCREEN Positive (Negative); EDINFLUASCREEN Negative (Negative); EDINFLUBSCREEN Negative (Negative)
== END 2024-12-13 14:34 | disposition home or self-care (01) ==
PROVIDERS: Emergency Provider Nurse Practitioner; PCP Nurse Practitioner
DX: H73.891 Other specified disorders of tympanic membrane, right ear (principal); U07.1 COVID-19; D80.2 Selective deficiency of immunoglobulin A [IgA]; E03.9 Hypothyroidism, unspecified; J45.909 Unspecified asthma, uncomplicated; K90.0 Celiac disease
CPT/HCPCS: 87426; 87804; 99213; G0463

== ENCOUNTER 2024-12-29 10:58 | Outpatient (CLI) | payer OTHER, SELFPAY ==
--- OUTSIDE RECORDS SUMMARY | 2024-12-29 11:02 | XMS_ITS | Clinical Summary ---
Author Organization [facility] Address [address] [place] [address] Care Team Providers Care Assistant Federal Public Defender Name Role Phone Marva uGerra NP Primary Care Provider + [phone] Allergies No known active allergies Medications levothyroxine (SYNTHROID) 50 mcg tablet Take 1 tablet (50 mcg total) by mouth daily 3 Active MULTIVITAMIN ORAL Take by mouth daily Active estradioL (ESTRACE) 0.5 mg tablet Take 3 tablets (1.5 mg total) by mouth daily 5 Active ibuprofen (IBU) 600 mg tablet as needed Active omeprazole (PriLOSEC) 20 mg capsule Take 1 capsule (20 mg total) by mouth daily 5 Active albuterol HFA (PROVENTIL HFA,VENTOLIN HFA,PROAIR HFA) 90 mcg/actuation inhaler Inhale 2 puffs every 6 (six) hours as needed for wheezing or shortness of breath 1 each 3 5 09/27/19 26 Active sertraline (ZOLOFT) 50 mg tablet TAKE 1/2 OF A TABLET(25 MG) BY MOUTH EVERY DAY 5 Active hydroxychloroqu ine (PLAQUENIL) 200 mg tabletIndicatio ns:MCTD (mixed connective tissue disease) Take 1.5 tablets (300 mg total) by mouth daily 135 tablet 1 5 05/19/19 26 Active Active Problems Problem Noted Date Diagnosed Date SOB (shortness of breath) 09/26/2024 Arm pain, left 04/13/2024 TOS (thoracic outlet syndrome) 04/13/2024 Chronic pain of both hips 04/13/2024 Arthralgia of both hands 06/09/2023 MCTD (mixed connective tissue disease) Easy bruising 06/09/2023 Ankle edema, bilateral 03/11/2023 Bilateral hip pain 03/10/2023 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 Low back pain 03/10/2023 Abnormal uterine bleeding 05/25/2018 Asthma 05/25/2018 Irritable bowel syndrome 05/25/2018 Migraine 05/25/2018 Encounters Date Type Department Care Team Description 12/06/2024 11:07 AM CDT - 12/06/2024 11:59 PM CDT Hospital Encounter [address] [address] Bilateral hip pain Discharge Disposition: Discharge to home or self care 11/20/2024 12:06 PM CDT - 11/20/2024 11:59 PM CDT Hospital Encounter [address] [address] MCTD (mixed connective tissue disease) Discharge Disposition: Discharge to home or self care 11/20/2024 12:00 PM CDT Lab [facility] Medicine Infectious Diseases [address] [place] [address] 11/20/2024 11:30 AM CDT Office Visit [facility] Medicine Rheumatology [address] [place] [address] Lon Cardona MD Anti-SOMMELIER antibodies present (Primary Dx); MCTD (mixed connective tissue disease); Bilateral hip pain; High risk medication use; SOB (shortness of breath); Lung nodule from Last 3 Months Surgical History Surgery Date Site/Laterality Comments APPENDECTOMY 1994 BREAST SURGERY 2005 COSMETIC SURGERY Breast 2011 HERNIA REPAIR 1979 HYSTERECTOMY 2018 Medical History Medical History Date Comments Anemia On and off entire life Asthma From 13 yrs to 30yrs old Depression 2022 Migraines 2011 Thyroid disease Diagnosed 2021 Autoimmune disease Celiac [...] Cessation:Counseling Given: Not Answered Social Connection and Isolation Panel Answer Date Recorded In a typical week, how many times do you talk on the phone with family, friends, or neighbors? More than three times a week 11/16/2023 How often do you get togethe r with friends or relatives? Patient declined 11/16/2023 How often do you attend chur or church services? Patient declined 11/16/2023 Do you belong to any clubs o r organizations such as episcopalian groups, unions, fraternal or athletic groups, or [...] Recorded Patient Health Questionnaire-2 Score 0 11/16/[address] [facility] [place] of Occupat ional Health - Occupational Stress [...] place to sleep or slept in a assisted (including now)? No 06/09/2023 Comments Unknown Sex and Gender Information Value Date Recorded Sex Assigned at Not on file Legal Sex Female 12:23 PM CDT Gender Identity Not on file Sexual Orientation Not on file Obstetrics History Last Filed Vital Signs Vital Sign Reading Time Taken Comments Blood Pressure 113/76 11/20/2024 11:28 AM CDT Pulse 74 11/20/2024 11:28 AM CDT Temperature 36.3 C (97.4 F) 11/20/2024 11:28 AM CDT Respiratory Rate 18 09/26/2024 9:00 AM CDT Oxygen Saturation 99% 11/20/2024 11:28 AM CDT Inhaled Oxygen Concentration - - Weight 66.8 kg (147 lb 3.2 oz) 11/20/2024 11:28 AM CDT Height 165.1 cm (5' 5) 11/20/2024 11:28 AM CDT Body Mass Index 24.5 11/20/2024 11:28 AM CDT Plan of Treatment Health Maintenance Due Date Last Done Comments Breast Cancer Screening-Mammogram 1975 Colon Cancer Screening-Colonoscopy 1975 Hepatitis C Screening 1975 DTaP/Tdap/Td Vaccine (1 - Tdap) 10/27/1986 Hepatitis B Screening 10/27/1993 Regular Well Visit/Exam 18-64 10/27/1993 Pneumococcal vaccine <65 (1 of 2 - PCV) 10/27/1994 Zoster Vaccine (1 of 2) 10/27/1994 Depression Screening 11/15/2024 11/16/2023, 06/09/2023, 03/10/2023 Influenza Vaccine (#1) 2024 Procedures Procedure Name Priority Date/Time Associated Diagnosis Comments XR HIP LEFT 2 OR 3 VIEWS Routine 12/06/2024 11:46 AM CDT Bilateral hip pain XR HIP RIGHT 2 OR 3 VIEWS Routine 12/06/2024 11:46 AM CDT Bilateral hip pain XR KNEE BILATERAL AP STANDING Routine 12/06/2024 11:46 AM CDT Bilateral hip pain EGFR Routine 11/20/2024 12:06 PM CDT MCTD (mixed connective tissue disease) DIFFERENTIAL AUTO Routine 11/20/2024 12: 06 PM CDT MCTD (mixed connective tissue disease) CRP (ACUTE PHASE) Routine 11/20/2024 12: 06 PM CDT MCTD (mixed connective tissue disease) CBC WITH AUTO DIFFERENTIAL Routine 11/20/2024 12:06 PM CDT MCTD (mixed connective tissue disease) COMPREHENSIVE METABOLIC PANEL Routine 11/20/2024 12:06 PM CDT MCTD (mixed connective tissue disease) ERYTHROCYTE SEDIMENTATION RATE Routine 11/20/2024 12:06 PM CDT MCTD (mixed connective tissue disease) from Last 3 Months Results * XR Knee Bilateral Ap Standing (12/06/2024 11:46 AM CDT) Anatomical Region Laterality Modality Lower Extremities, Knee Bilateral Computed Radiography 12/08/2024 5:03 PM CDT Narrative 12/08/2024 5:18 PM CDT EXAM DESCRIPTION: 1. XR HIP LEFT 2 OR 3 VIEWS; 2. XR HIP RIGHT 2 OR 3 VIEWS; 3. XR KNEE BILATERAL 3-4 views REASON FOR STUDY: arthralgia, Knee pain. R/o inflammatory arthritis Bilat hip and knee pain x years No known injury FINDINGS: Two views left hip, three views right hip, and two views each knee submitted without comparison. Hips: No acute fracture. The femoral heads are well seated. The hip joint space heights are normal. Alignment is normal. Knees: No acute fracture. Alignment is normal. The joint spaces are normal. No effusion. IMPRESSION: 1. Normal bilateral hip joint space heights. 2. Normal bilateral knee joint space evaluation. THIS IS AN ELECTRONICALLY VERIFIED FINAL REPORT 12/08/2024 5:18 PM - Electronically signed by Fahad Paulson M.D. T: Report ID: [id number] Reading Location: [place] [address] Procedure Note Fahad Paulson MD - 12/08/2024 EXAM DESCRIPTION: 1. XR HIP LEFT 2 OR 3 VIEWS; 2. XR HIP RIGHT 2 OR 3 VIEWS; 3. XR KNEE BILATERAL 3-4 views REASON FOR STUDY: arthralgia, Knee pain. R/o inflammatory arthritis Bilat hip and knee pain x years No known injury FINDINGS: Two views left hip, three views right hip, and two views eachknee submitted without comparison. Hips: No acute fracture. The femoral heads are well seated. The hip jointspace heights are normal. Alignment is normal. Knees: No acute fracture. Alignment is normal. The joint spaces are normal. No effusion. IMPRESSION: 1. Normal bilateral hip joint space heights. 2. Normal bilateral knee joint space evaluation. THIS IS AN ELECTRONICALLY VERIFIED FINAL REPORT 12/08/2024 5:18 PM - Electronically signed by Fahad Paulson M.D. T: Report ID: [id number] Reading Location: [place] [address] Lon Forrest MD IMG XR PROCEDURES Final Result * XR Hip Right 2 or 3 Views (12/06/2024 11:46 AM CDT) Anatomical Region Laterality Modality Lower Extremities, Hip, Pelvis Right C omputed Radiography 12/08/2024 5:03 PM CDT Narrative 12/08/2024 5:18 PM CDT EXAM DESCRIPTION: 1. XR HIP LEFT 2 OR 3 VIEWS; 2. XR HIP RIGHT 2 OR 3 VIEWS; 3. XR KNEE BILATERAL 3-4 views REASON FOR STUDY: arthralgia, Knee pain. R/o inflammatory arthritis Bilat hip and knee pain x years No known injury FINDINGS: Two views left hip, three views right hip, and two views each knee submitted without comparison. Hips: No acute fracture. The femoral heads are well seated. The hip joint space heights are normal. Alignment is normal. Knees: No acute fracture. Alignment is normal. The joint spaces are normal. No effusion. IMPRESSION: 1. Normal bilateral hip joint space heights. 2. Normal bilateral knee joint space evaluation. THIS IS AN ELECTRONICALLY VERIFIED FINAL REPORT 12/08/2024 5:18 PM - Electronically signed by Fahad Paulson M.D. T: Report ID: [id number] Reading Location: [id number] Procedure Note Fahad Paulson MD - 12/08/2024 EXAM DESCRIPTION: 1. XR HIP LEFT 2 OR 3 VIEWS; 2. XR HIP RIGHT 2 OR 3 VIEWS; 3. XR KNEE BILATERAL 3-4 views REASON FOR STUDY: arthralgia, Knee pain. R/o inflammatory arthritis Bilat hip and knee pain x years No known injury FINDINGS: Two views left hip, three views right hip, and two views eachknee submitted without comparison. Hips: No acute fracture. The femoral heads are well seated. The hip jointspace heights are normal. Alignment is normal. Knees: No acute fracture. Alignment is normal. The joint spaces are normal. No effusion. IMPRESSION: 1. Normal bilateral hip joint space heights. 2. Normal bilateral knee joint space evaluation. THIS IS AN ELECTRONICALLY VERIFIED FINAL REPORT 12/08/2024 5:18 PM - Electronically signed by Fahad Paulson M.D. T: Report ID: [id number] Reading Location: [id number] Lon Forrest MD IMG XR PROCEDURES Final Result * XR Hip Left 2 or 3 Views (12/06/2024 11:46 AM CDT) Anatomical Region Laterality Modality Lower Extremities, Hip, Pelvis Left C omputed Radiography 12/08/2024 5:03 PM CDT Narrative 12/08/2024 5:18 PM CDT EXAM DESCRIPTION: 1. XR HIP LEFT 2 OR 3 VIEWS; 2. XR HIP RIGHT 2 OR 3 VIEWS; 3. XR KNEE BILATERAL 3-4 views REASON FOR STUDY: arthralgia, Knee pain. R/o inflammatory arthritis Bilat hip and knee pain x years No known injury FINDINGS: Two views left hip, three views right hip, and two views each knee submitted without comparison. Hips: No acute fracture. The femoral heads are well seated. The hip joint space heights are normal. Alignment is normal. Knees: No acute fracture. Alignment is normal. The joint spaces are normal. No effusion. IMPRESSION: 1. Normal bilateral hip joint space heights. 2. Normal bilateral knee joint space evaluation. THIS IS AN ELECTRONICALLY VERIFIED FINAL REPORT 12/08/2024 5:18 PM - Electronically signed by Fahad Paulson M.D. T: Report ID: [id number] Reading Location: [id number] Procedure Note Fahad Paulson MD - 12/08/2024 EXAM DESCRIPTION: 1. XR HIP LEFT 2 OR 3 VIEWS; 2. XR HIP RIGHT 2 OR 3 VIEWS; 3. XR KNEE BILATERAL 3-4 views REASON FOR STUDY: arthralgia, Knee pain. R/o inflammatory arthritis Bilat hip and knee pain x years No known injury FINDINGS: Two views left hip, three views right hip, and two views eachknee submitted without comparison. Hips: No acute fracture. The femoral heads are well seated. The hip jointspace heights are normal. Alignment is normal. Knees: No acute fracture. Alignment is normal. The joint spaces are normal. No effusion. IMPRESSION: 1. Normal bilateral hip joint space heights. 2. Normal bilateral knee joint space evaluation. THIS IS AN ELECTRONICALLY VERIFIED FINAL REPORT 12/08/2024 5:18 PM - Electronically signed by Fahad Paulson M.D. T: Report ID: [id number] Reading Location: [id number] Lon Forrest MD IMG XR PROCEDURES Final Result * eGFR (11/20/2024 12:06 PM CDT) eGFR 85 >=60 mL/min/1. 73 m2 Comment: Interpretive Data Reference Interval Normal >/= 90 mL/min/1.73m2 Mildly decreased* 60 - 89 mL/min/1.73m2 Mildly to moderately decreased 45 - 59 mL/min/1.73m2 Moderately to severely decreased 30 - 44 mL/min/1.73m2 Severely decreased 15 - 29 mL/min/1.73m2 Kidney Failure < 15 mL/min/1.73m2 *Relative to young adult level Estimated glomerular filtration rate is determined by the 2020 CKD-EPI equation recommended by the National Kidney Foundation (A Unifying Approach to GFR Estimation: Recommendations of the NKF-ASK Task Force on Reassessing the Inclusion of Race in Diagnosing Kidney Disease, JASN 2020). The CKD-EPI equation should not be used for patients with unstable renal function and has not been validated in children and those over 70. Current interpretive data was last reviewed 2021. Blood 11/20/2024 12:0 6 PM CDT 11/20/2024 4:50 PM CDT Lon Forrest MD LAB BL OOD ORDERABLES Final Result [facility] [address] Department [place] [address] * (ABNORMAL) Differential, auto (11/20/2024 12:06 PM CDT) Neutrophil abs 8.02(H) 1.50 - 6.50 K/cumm Imm gran abs 0.02 0.00 - 0.10 K/cumm [facility] Lymphocyte abs 1.39 0.80 - 3.30 K/cumm [facility] Monocyte abs 1.00(H) 0.20 - 0.80 K/cumm [facility] Eosinophil abs 0.11 0.00 - 0.50 K/cumm [facility] Basophil abs 0.05 0.00 - 0.10 K/cumm [facility] Neutrophil pct 75.8 % [facility] Comment: Interpretive Data Percent cell count reference ranges are not reported, since discordance with absolute values may lead to misinterpretation of CBC data. Current Interpretive Data was last revised on 2017. Imm gran pct 0.2 % [facility] Comment: Interpretive Data Percent cell count reference ranges are not reported, since discordance with absolute values may lead to misinterpretation of CBC data. Current Interpretive Data was last revised on 2017. Lymphocyte pct 13.1 % [facility] Comment: Interpretive Data Percent cell count reference ranges are not reported, since discordance with absolute values may lead to misinterpretation of CBC data. Current Interpretive Data was last revised on 2017. Monocyte pct 9.4 % [facility] Comment: Interpretive Data Percent cell count reference ranges are not reported, since discordance with absolute values may lead to misinterpretation of CBC data. Current Interpretive Data was last revised on 2017. Eosinophil pct 1.0 % [facility] Comment: Interpretive Data Percent cell count reference ranges are not reported, since discordance with absolute values may lead to misinterpretation of CBC data. Current Interpretive Data was last revised on 2017. Basophil pct 0.5 % [facility] Comment: Interpretive Data Percent cell count reference ranges are not reported, since discordance with absolute values may lead to misinterpretation of CBC data. Current Interpretive Data was last revised on 2017. Blood 11/20/2024 12:0 6 PM CDT 11/20/2024 4:48 PM CDT Lon Forrest MD LAB BL OOD ORDERABLES Final Result [facility] [address] Department [place] [address] * (ABNORMAL) CBC with auto differential (11/20/2024 12:06 PM CDT) WBC 10.59(H) 3.80 - 9.90 K/cumm Hgb 12.8 11.9 - 15.5 g/dL [facility] Hct 40.2 35.6 - 45.5 % [facility] CH Plt 278 150 - 400 K/cumm [facility] CH MPV 11.3 9.1 - 12.3 fL [facility] CH RBC 4.45 3.90 - 5.20 M/cumm [facility] MCV 90.3 81.3 - 96.4 fL [facility] CH MCH 28.8 27.1 - 33.3 pg [facility] MCHC 31.8(L) 32.3 - 35.7 g/dL [facility] RDW CV 12.6 11.1 - 14.9 % [facility] RDW SD 41.6 35.7 - 48.1 fL [facility] NRBC abs 0.00 0.00 - 0.01 K/cumm [facility] Blood 11/20/2024 12:0 6 PM CDT 11/20/2024 4:48 PM CDT Lon Forrest MD LAB BL OOD ORDERABLES Final Result Performing Organization Address City/[facility]/ZIP Co de Phone Number [facility] [address] [facility] [place], [place] [id number] * Erythrocyte sedimentation rate (11/20/2024 12:06 PM CDT) Erythrocyte sedimentation rate 10 1 - 20 mm/hr Blood 11/20/2024 12:0 6 PM CDT 11/20/2024 4:48 PM CDT Lon Forrest MD LAB BL OOD ORDERABLES Final Result Performing Organization Address [facility] Co de Phone Number [facility] [address] [facility] [place], [place] [id number] * (ABNORMAL) CRP (acute phase) (11/20/2024 12:06 PM CDT) CRP 26.6(H) <=10.0 mg/L Blood 11/20/2024 12:0 6 PM CDT 11/20/2024 4:48 PM CDT Lon Forrest MD LAB BL [place] [address] [address] Department [place] [address] * Comprehensive metabolic panel (11/20/2024 12:06 PM CDT) Sodium 139 135 - 145 mmol/L Potassium, pl 4.1 3.3 - 4.9 mmol/L [facility] Chloride 102 97 - 110 mmol/L [facility] CO2 24 22 - 32 mmol/L [facility] Anion gap 13 2 - 15 mmol/L [facility] BUN 14 6 - 25 mg/dL [facility] Creatinine 0.84 0.60 - 1.10 mg/dL [facility] Glucose 97 70 - 199 mg/dL [facility] Comment: Interpretive Data Fasting glucose >/= 126 mg/dl is diagnostic for diabetes. Fasting is defined as no caloric intake for at least 8 hours. Fasting glucose between 100 mg/dl to 125 mg/dl is diagnostic of prediabetes. In a patient with classic symptoms of hyperglycemia or hyperglycemic crisis, a random glucose >/= 200 mg/dl is diagnostic for diabetes. In the absence of unequivocal hyperglycemia, results should be confirmed by repeat testing. The classification and Diagnosis of Diabetes Diabetes Care 202; 46: S19-S40. Current interpretive data was last revised 2022. Calcium 9.1 8.5 - 10.3 mg/dL [facility] Bilirubin, total 0.6 0.1 - 1.2 mg/dL [facility] Protein, pl 7.2 6.5 - 8.5 g/dL [facility] Albumin 4.2 3.5 - 5.0 g/dL [facility] Alk phos 46 40 - 130 Units/L [facility] ALT 20 7 - 45 Units/L [facility] AST 21 10 - 45 Units/L [facility] Blood 11/20/2024 12:0 6 PM CDT 11/20/2024 4:48 PM CDT Lon Forrest MD LAB [place] [address] [address] Department [place] [address] from Last 3 Months Insurance [id number] [place], [place] [address]O [id number] [place], [place] [address]O [facility] H[facility] Care Teams Assistant Federal Public Defender Relationship Specialty Start Date End Date Marva Guerra NP PCP - General Nurse Practitioner 02/12/23
--- OUTSIDE RECORDS SUMMARY | 2024-12-29 11:02 | XMS_ITS | Clinical Summary ---
Author Organization [facility] Address [address] [place] [address] Care Team Providers Care Grocery Stock Clerk Name Role Phone Unavailable Primary Care Provider Unavailabl e Source Comments [facility],non-owned Affiliates and Associated Physician Practices is amultiple site organization consisting of ambulatory clinics and hospital sitesin [place], [place], [place] and [place]. This disclosure is being madepursuant to the Care Everywhere program and may not contain all information available regarding this patient. Last updated 17.[facility] [employer] Social History Tobacco Use Types Packs/Day Years [...] SCREENING 1975 LIPID TESTING 1975 MAMMOGRAM 1975 HIV SCREENING 10/27/1990 HEPATITIS C SCREENING 10/23/1993 DTAP/TDAP/TD VACCINES (1 - Tdap) 10/27/1994 HEPATITIS B VACCINE (1 of 3 - 19+ 3-dose series) 10/27/1994 PAP SMEAR 10/27/1996 DEPRESSION SCREENING 04/05/2024 COVID-19 VACCINE (1 - 2023-2 5 season) 2024 INFLUENZA VACCINE (#1) 2024 ZOSTER VACCINE (1 of 2) 10/27/2025 [...] to complete this topic Insurance AETNA [facility] Address: [id number] [place] [address] SELF PAY NO INSURANCE Member Subscriber Plan / Payer (Ef fective for All Dates) Name:Anayeli Raman Member ID:Not on file Relation to Subscriber:Not on file Name:ANAYELI RAMAN Subscriber ID:Not on file (Home) Address: [address] [place] [phone] Payer ID:Not on file Group ID:Not on file Type:Self Pay Address: [place], [place] AETNA * Guarantor: ANAYELI RAMAN Account Type Relation to Patient Date of Phone Billing Address Personal/Family Spouse
[2024-12-29 11:58] LABS: Hematocrit 36.4 % (37.0-47.0); Hemoglobin 11.8 g/dL (12.0-15.0); Immature Granulocyte Percent A 0.3 % (0-0.5); Lymphocytes Absolute Auto 1.56 K/mm3 (0.9-3.2); Mean Corpuscular HGB Conc 32.4 g/dl (32-36); Mean Corpuscular Hemoglobin 28.9 pg (26-34); Mean Corpuscular Volume 89.0 fl (80-100); Nucleated Red Blood Cells Absolute Auto 0.000 K/mm3 (0.0-0.012); Nucleated Red Blood Cells Perc 0.0 % (0.0-0.2); Platelet Count Result 239 k/mm3 (150-375); Red Blood Count 4.09 M/mm3 (4.2-5.4); White Blood Count 6.8 K/mm3 (4.5-10.0)
[2024-12-29 12:15] LABS: Alanine Aminotransferase 34 U/L (6-35); Albumin Level 4.0 g/dL (3.5-5.1); Alkaline Phosphatase 41 U/L (38-126); Anion Gap 6 mmol/L (4-12); Aspartate Amino Transferase 25 U/L (14-36); Bilirubin,Total 0.4 mg/dL (0.2-1.3); Blood Urea Nitrogen 14 mg/dL (7-17); Calcium 8.5 mg/dL (8.4-10.2); Carbon Dioxide 26 mmol/L (22-30); Chloride 104 mmol/L (98-107); Estimated Glomerular Filt Rate > 60; Glucose 82 mg/dL (65-110); Magnesium 1.8 mg/dL (1.6-2.3); Potassium 3.8 mmol/L (3.4-5.0); Sodium 136 mmol/L (137-145); Total Protein 6.8 g/dL (6.3-8.2)
[2024-12-29 12:16] LABS: Iron 65 ug/dL (37-170)
[2024-12-29 12:26] LABS: Percent Iron Saturation 17 % (20-50)
[2024-12-29 12:58] LABS: Ferritin 33.60 ng/mL (6.24-137)
[2024-12-29 13:26] LABS: Vitamin B12 1000.0 pg/mL (239-931)
== END 2024-12-29 10:59 | disposition home or self-care (01) ==
LOC: ANHLAB 10:59
PROVIDERS: PCP Nurse Practitioner; Visit Provider Nurse Practitioner
DX: K90.0 Celiac disease (principal)
CPT/HCPCS: 36415; 80053; 82306; 82607; 82728; 82746; 83540; 83550; 83735; 85025; 86231

== ENCOUNTER 2025-01-09 12:34 | Outpatient (CLI) | payer OTHER, SELFPAY ==
--- OUTSIDE RECORDS SUMMARY | 2025-01-09 13:25 | XMS_ITS | Clinical Summary ---
Author Organization [facility] Address [address] [place] [address] Care Team Providers Care Furniture Repairer Name Role Phone Unavailable Primary Care Provider Unavailabl e Source Comments [facility],non-owned Affiliates and Associated Physician Practices is amultiple site organization consisting of ambulatory clinics and hospital sitesin [place], [place], [place] and [place]. This disclosure is being madepursuant to the Care Everywhere program and may not contain all information available regarding this patient. Last updated 17.[facility] [employer] Social History Tobacco Use Types Packs/Day Years [...] to complete this topic Insurance AETNA AETNA SELF PAY NO INSURANCE Member Subscriber Plan / Payer (Ef fective for All Dates) Name:Anayeli Raman Member ID:Not on file Relation to Subscriber:Not on file Name:ANAYELI RAMAN Subscriber ID:Not on file (Home) Address: [address] [place] [phone] Payer ID:Not on file Group ID:Not on file Type:Self Pay Address: [place], [place] [employer] * Guarantor: ANAYELI RAMAN Account Type Relation to Patient Date of Phone Billing Address Personal/Family Spouse
--- OUTSIDE RECORDS SUMMARY | 2025-01-09 13:25 | XMS_ITS | Clinical Summary ---
Author Organization [facility] Address [address] [place] [address] Care Team Providers Care Clinical Staff Pharmacist Name Role Phone Marva Guerra NP Primary Care Provider + [phone] Allergies No known active allergies Medications levothyroxine [...] Active Problems Problem Noted Date Diagnosed Date Dyspnea on exertion 09/26/2024 Arm pain, left 04/13/2024 TOS (thoracic outlet syndrome) 04/13/2024 Chronic pain of both hips 04/13/2024 Arthralgia of both hands 06/09/2023 MCTD (mixed connective tissue disease) Easy bruising 06/09/2023 Ankle edema, bilateral 03/11/2023 Bilateral hip pain 03/10/2023 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 Low back pain 03/10/2023 Abnormal uterine bleeding 05/25/2018 Asthma 05/25/2018 Irritable bowel syndrome 05/25/2018 Migraine 05/25/2018 Encounters Date Type Department Care Team Description 01/01/2025 10:45 AM CDT - 01/01/2025 11:59 PM CDT Hospital Encounter [facility] Medicine Pulmonary [address] [place] [address] Dyspnea on exertion Discharge Disposition: Discharge to home or self care 01/01/2025 Documentation [facility] Medicine Pulmonary [address] [place] [address] [place] [address] Isai Garcia MD 12/06/2024 11:07 AM CDT - 12/06/2024 11:59 PM CDT Hospital Encounter [address] [address] Bilateral hip pain Discharge Disposition: Discharge to home or self care 11/20/2024 12:06 PM CDT - 11/20/2024 11:59 PM CDT Hospital Encounter [address] [address] MCTD (mixed connective tissue disease) Discharge Disposition: Discharge to home or self care 11/20/2024 12:00 PM CDT Lab [facility] Medicine Infectious Diseases [address] [place] [address] [address] [place] [id number] 11/20/2024 11:30 AM CDT Office Visit [facility] Medicine Rheumatology [address] [place] [address] [address] [place] [id number] Lon Cardona MD Anti-POLYMER ENGINEER antibodies present (Primary Dx); MCTD (mixed connective [...] How often do you attend chur or catholic services? Patient declined 11/16/2023 Do you belong to any clubs o r organizations such as sikhism groups, unions, fraternal or athletic groups, or [...] Recorded Patient Health Questionnaire-2 Score 0 11/16/2023 [facility] Occupat ional Health - Occupational Stress [...] place to sleep or slept in a fpc (including now)? No 06/09/2023 Comments Unknown Sex [...] Diagnosis Comments PULMONARY FUNCTION TEST (PFT) Routine 01/01/2025 12:11 PM CDT Dyspnea on exertion XR HIP LEFT 2 OR 3 VIEWS [...] disease) from Last 3 Months Results * Pulmonary Function Test - (01/01/2025 12:11 PM CDT) FVC PRE 3.51 L [facility] FVC %PRE PRED 103 % [facility] FVC POST 3.44 L [facility] FVC %POST PRED 101 % [facility] FEV1 PRE 2.78 L [facility] FEV1 %PRE PRED 100 % [facility] FEV1 POST 2.79 L [facility] FEV1 %POST PRED 101 % [facility] FEV1/FVC PRE 79.2 % [facility] FEV1/FVC POST 81.1 % [facility] FIO2 % 21.00 % [facility] PaO2 100.0 mmHg [facility] PaCO2 38.0 mmHg [facility] pH 7.43 [facility] A-aDO2 POC 2.0 mmHg [facility] METHGB % 0.3 % [facility] COHb POC 1.0 % [facility] HCO3 25.2 mEq/L [facility] Anatomical Region Laterality Modality PFT 01/01/2025 11:0 9 AM CDT Narrative 01/01/2025 1:30 PM CDT PFT performed at:->[facility] Adult PFT Lab- [id number] Procedure:->Pulmonary Stress Test - Complex Brief Clinical History and Reason for Exercise Study: dyspnea Study Results: The patient underwent a cardiopulmonary exercise study on a cycle ergometer with collection of gases. The workload was increased progressively at three-minute intervals until the patient stopped exercise due to leg burning. Peak exercise corresponded to a workload of 9.1 METS, and a VO2max of 91 % predicted. A. Ventilatory Responses: Minute ventilation (VE) at rest was normal at 8.5 L/min. The level of VE increase with incremental exercise was normal and peaked at 43 % of maximum voluntary ventilation (MVV). This corresponds with a breathing reserve (BR) of 57 % of predicted, which is normal (normal is greater than 20%) Tidal volume (Vt) and respiratory rate (RR) demonstrated a normal response to exercise. Estimated physiologic space (Vd/Vt) decreased normally from 0.27 to 0.16. Oxyhemoglobin saturation at rest was 98 % and 98 % at peak exercise. B. Cardiovascular Responses: Heart rate at rest was normal at 74 b/min. The magnitude of heart rate response to incremental exercise was normal and peaked at 138 % of predicted. Systolic and diastolic blood pressure increased normally. The O2 pulse (VO2/HR) increased normally during the study peaking at 112 % predicted. The anaerobic threshold was achieved and occurred at 70 % predicted VO2max. Electrocardiographic monitoring demonstrated depressions in II, III and aVF as well as V4, V5, V6. Oddly all of these did decline slightly before maximal exercise but did normalize rapidly with rest. This could be motion artifact related but may warrant further investigation with imaging. Interpretation: The study was stopped more due to leg symptoms that true dyspnea but shows a mostly cardiac limitation. The patient was able to reach a normal VO2 max with an excellent increase in B1lkimf (stroke volume equivalent) without a clear plateau that would be typical of ischemia. The heart rate was sub maximal with a reserve of 33% but trends show a relatively normal response to exercise. This may simply reflect the early stopping being a leg limitation and not a true cardiac limitation. However trends is ST segments in inferior leads may warrant further evaluation if risk factors suggest. Ventilatory responses are normal with an adequate breathing reserve and exercise tidal volume response. Pulmonary vascular responses are normal with an adequate decline in space ventilation (Vd/Vt) and A-a gradient. us Sahil Mo Jr., MD PFT ORDERABLES Fi nal Result * XR Knee Bilateral Ap Standing (12/06/2024 [...] 12/08/2024 5:18 PM - Electronically signed by Faahd Paulson M.D. T: Report ID: [id number] [place] Location: [id number] Procedure Note Fahad Paulson MD - 12/08/2024 [...] by Fahad Paulson M.D. T: Report ID: [id number] [place] Location: [id number] Lon Forrest MD IMG XR PROCEDURES Final [...] by Fahad Paulson M.D. T: Report ID: [id number] [place] Location: [place] [address] Procedure Note Fahad Paulson MD - 12/08/2024 [...] by Fahad Paulson M.D. T: Report ID: [id number] [place] Location: [place] [address] Lon Forrest MD IMG XR PROCEDURES Final [...] by Fahad Paulson M.D. T: Report ID: [id number] [place] Location: [place] [address] Procedure Note Fahad Paulson MD - 12/08/2024 [...] by Fahad Paulson M.D. T: Report ID: [id number] [place] Location: [place] [address] Lon Forrest MD IM XR PROCEDURES Final Result * eGFR (11/20/2024 [...] MD LAB BL OOD ORDERABLES Final Result [facility] [id number] Department [place] [address] * (ABNORMAL) Differential, auto (11/20/2024 12:06 PM CDT) Neutrophil abs 8.02(H) 1.50 - 6.50 K/cumm Imm gran abs 0.02 0.00 - 0.10 K/cumm [facility] Lymphocyte abs 1.39 0.80 - 3.30 K/cumm [facility] Monocyte abs 1.00(H) 0.20 - 0.80 K/cumm [facility] Eosinophil abs 0.11 0.00 - 0.50 K/cumm [facility] Basophil abs 0.05 0.00 - 0.10 K/cumm [facility] Neutrophil pct 75.8 % [facility] Comment: Interpretive Data Percent cell count reference ranges are not reported, since discordance with absolute values may lead to misinterpretation of CBC data. Current Interpretive Data was last revised on 2017. Imm gran pct 0.2 % [facility] Comment: Interpretive Data Percent cell count reference ranges are not reported, since discordance with absolute values may lead to misinterpretation of CBC data. Current Interpretive Data was last revised on 2017. Lymphocyte pct 13.1 % [facility] Comment: Interpretive Data Percent cell count reference ranges are not reported, since discordance with absolute values may lead to misinterpretation of CBC data. Current Interpretive Data was last revised on 2017. Monocyte pct 9.4 % [facility] Comment: Interpretive Data Percent cell count reference ranges are not reported, since discordance with absolute values may lead to misinterpretation of CBC data. Current Interpretive Data was last revised on 2017. Eosinophil pct 1.0 % [facility] Comment: Interpretive Data Percent cell count reference ranges are not reported, since discordance with absolute values may lead to misinterpretation of CBC data. Current Interpretive Data was last revised on 2017. Basophil pct 0.5 % [facility] Comment: Interpretive Data Percent cell count reference ranges are not reported, since discordance with absolute values may lead to misinterpretation of CBC data. Current Interpretive Data was last revised on 2017. Blood 11/20/2024 12:0 6 PM CDT 11/20/2024 4:48 PM CDT Lon Forrest MD LAB BL OOD ORDERABLES Final Result [facility] [id number] Department [place] [address] * (ABNORMAL) CBC with auto differential (11/20/2024 12:06 PM CDT) WBC 10.59(H) 3.80 - 9.90 K/cumm Hgb 12.8 11.9 - 15.5 g/dL [facility] Hct 40.2 35.6 - 45.5 % [facility] Plt 278 150 - 400 K/cumm [facility] MPV 11.3 9.1 - 12.3 fL [facility] RBC 4.45 3.90 - 5.20 M/cumm [facility] MCV 90.3 81.3 - 96.4 fL [facility] MCH 28.8 27.1 - 33.3 pg [facility] MCHC 31.8(L) 32.3 - 35.7 g/dL [facility] RDW CV 12.6 11.1 - 14.9 % [facility] RDW SD 41.6 35.7 - 48.1 fL [facility] NRBC abs 0.00 0.00 - 0.01 K/cumm [facility] Blood 11/20/2024 12:0 6 PM CDT 11/20/2024 4:48 PM CDT Lon Forrest MD LAB BL OOD ORDERABLES Final Result Performing Organization Address City/[facility]/ZIP Co de Phone Number PATRICIASANDRA OLIVER [id number] [address] [facility] [place] [address] * Erythrocyte sedimentation rate (11/20/2024 12:06 PM CDT) Erythrocyte sedimentation rate 10 1 - 20 mm/hr Blood 11/20/2024 12:0 6 PM CDT 11/20/2024 4:48 PM CDT Lon Forrest MD LAB BL OOD ORDERABLES Final Result Performing Organization Address [facility]/ZIP Co de Phone Number PATRICIASANDRA OLIVER [phone] [address] [facility] [place] [address] * (ABNORMAL) CRP (acute phase) (11/20/2024 12:06 PM CDT) CRP 26.6(H) <=10.0 mg/L Blood 11/20/2024 12:0 6 PM CDT 11/20/2024 4:48 PM CDT Lon Forrest MD LAB BL OOD ORDERABLES Final Result Performing Organization Address [facility]/ZIP Co de Phone Number GAURANG OLIVER [id number] [address] [facility] [place] [place] [address] * Comprehensive metabolic panel (11/20/2024 12:06 PM [...] classification and Diagnosis of Diabetes Diabetes Care 2021; 46: S19-S40. Current interpretive data was last [...] LAB BL OOD ORDERABLES Final Result GAURANG OLIVER [address] Department [place] [address] from Last 3 Months Insurance [facility] HMO [facility] HMO [facility] O Care Teams Clinical Staff Pharmacist Relationship Specialty Start Date End Date Marva Guerra NP PCP - General Nurse Practitioner 02/12/23
== END 2025-01-09 12:35 | disposition home or self-care (01) ==
LOC: ANHGOSHLAB 12:35
PROVIDERS: PCP Nurse Practitioner; Visit Provider Nurse Practitioner
DX: K90.0 Celiac disease (principal)
CPT/HCPCS: 86231

== ENCOUNTER 2025-03-14 11:41 | Outpatient (CLI) | payer OTHER, SELFPAY ==
[2025-03-14 13:17] LABS: Hematocrit 40.4 % (37.0-47.0); Hemoglobin 13.1 g/dL (12.0-15.0); Mean Corpuscular HGB Conc 32.4 g/dl (32-36); Mean Corpuscular Hemoglobin 29.4 pg (26-34); Mean Corpuscular Volume 90.6 fl (80-100); Platelet Count Result 287 k/mm3 (150-375); Red Blood Count 4.46 M/mm3 (4.2-5.4); White Blood Count 6.9 K/mm3 (4.5-10.0)
[2025-03-14 15:10] LABS: Iron 82 ug/dL (37-170)
[2025-03-14 15:31] LABS: Percent Iron Saturation 22 % (20-50)
[2025-03-14 15:59] LABS: Ferritin 22.30 ng/mL (6.24-137)
== END 2025-03-14 11:42 | disposition home or self-care (01) ==
LOC: ANHGOSHLAB 11:41
PROVIDERS: PCP Nurse Practitioner; Visit Provider Nurse Practitioner
DX: D50.9 Iron deficiency anemia, unspecified (principal); K90.0 Celiac disease
CPT/HCPCS: 36415; 82728; 83540; 83550; 85027